=== PATIENT | female | born 1935 | race Caucasian/White ===

== ENCOUNTER → 2016-12-01 | Outpatient (CLI) | payer MEDICARE, OTHER ==
[2016-12-01 09:40] LABS: Basophils % (A) 1 %; CH 31.7; CHCM 32.5; Eosinophils # (A) 0.1 k/uL (0-0.7); Eosinophils % (A) 2 %; HCT 47.5 % (34.0-46.0); HDW 2.34; HGB 14.8 gm/dL (11.4-16.0); Luc % (Auto) 2; Lymphocytes # (A) 1.3 k/uL (1.0-4.8); Lymphocytes % (A) 21 %; MCH 30.6 pg (25.0-35.0); MCHC 31.2 g/dL (31.0-37.0); MCV 98.1 fL (80.0-100.0); Mean Platelet Volume 8.4; Monocytes # (A) 0.3 k/uL (0-1.0); Monocytes % (A) 5 %; Neutrophils # (A) 4.4 k/uL (1.3-7.7); Neutrophils % (A) 70 %; RBC 4.84 m/uL (3.80-5.40); RDW 12.9 % (11.5-15.5); WBC 6.3 k/uL (3.8-10.6); WBC (Perox) 6.16
[2016-12-01 10:14] LABS: ALT 27 U/L (9-52); AST 22 U/L (14-36); Alkaline Phosphatase 89 U/L (38-126); Anion Gap 15 mmol/L; Blood Urea Nitrogen 22 mg/dL (7-17); Carbon Dioxide 30 mmol/L (22-30); Chloride 105 mmol/L (98-107); Cholesterol 231 mg/dL (<200); Glucose 107 mg/dL (74-99); HDL Cholesterol 105 mg/dL (40-60); Non-African American GFR(MDRD) 57 (>60 ml/min/1.73 sqM); Potassium 4.7 mmol/L (3.5-5.1); Sodium 150 mmol/L (137-145); Total Bilirubin 0.5 mg/dL (0.2-1.3); Total Protein 7.9 g/dL (6.3-8.2); Triglycerides 98 mg/dL (<150)
[2016-12-01 10:46] LABS: Erythrocyte Sedimentation Rate 25 mm/hr (0-20)
== END | disposition home or self-care (01) ==
LOC: LABWHC1 09:14
PROVIDERS: ATTEND Internal Medicine
DX: E78.2 Mixed hyperlipidemia (principal); E55.9 Vitamin D deficiency, unspecified; R53.83 Other fatigue
CPT/HCPCS: 36415; 80053; 80061; 82306; 84443; 85025; 85652

== ENCOUNTER → 2017-06-02 | Outpatient (CLI) | payer MEDICARE, OTHER ==
[2017-06-02 11:23] LABS: CHCM 33.5; HCT 37.6 % (34.0-46.0); HDW 2.29; MCH 33.2 pg (25.0-35.0); MCHC 34.6 g/dL (31.0-37.0); MCV 95.9 fL (80.0-100.0); Mean Platelet Volume 7.5; RBC 3.93 m/uL (3.80-5.40); WBC 7.4 k/uL (3.8-10.6)
[2017-06-02 11:45] LABS: ALT 26 U/L (9-52); AST 21 U/L (14-36); Alkaline Phosphatase 82 U/L (38-126); Anion Gap 8 mmol/L; Blood Urea Nitrogen 25 mg/dL (7-17); Calcium 9.3 mg/dL (8.4-10.2); Carbon Dioxide 30 mmol/L (22-30); Chloride 106 mmol/L (98-107); Cholesterol 193 mg/dL (<200); Glucose 94 mg/dL (74-99); HDL Cholesterol 103 mg/dL (40-60); Non-African American GFR(MDRD) >60 (>60 ml/min/1.73 sqM); Potassium 4.6 mmol/L (3.5-5.1); Sodium 144 mmol/L (137-145); Total Bilirubin 0.5 mg/dL (0.2-1.3); Total Protein 6.9 g/dL (6.3-8.2); Triglycerides 67 mg/dL (<150)
[2017-06-02 12:10] LABS: Erythrocyte Sedimentation Rate 26 mm/hr (0-20)
== END | disposition home or self-care (01) ==
LOC: LABWHC1 10:39
PROVIDERS: ATTEND Internal Medicine
DX: R53.83 Other fatigue (principal)
CPT/HCPCS: 36415; 80053; 80061; 84443; 85027; 85652

== ENCOUNTER → 2017-09-15 | Outpatient (CLI) | payer MEDICARE, OTHER ==
[2017-09-15 12:26] LABS: CH 31.3; CHCM 31.7; HCT 42.6 % (34.0-46.0); HDW 2.26; HGB 13.4 gm/dL (11.4-16.0); MCH 31.1 pg (25.0-35.0); MCHC 31.5 g/dL (31.0-37.0); Mean Platelet Volume 7.5; RBC 4.31 m/uL (3.80-5.40); RDW 12.7 % (11.5-15.5); WBC 7.4 k/uL (3.8-10.6)
[2017-09-15 12:42] LABS: ALT 21 U/L (9-52); AST 22 U/L (14-36); Alkaline Phosphatase 90 U/L (38-126); Anion Gap 8 mmol/L; Blood Urea Nitrogen 22 mg/dL (7-17); Calcium 9.7 mg/dL (8.4-10.2); Carbon Dioxide 30 mmol/L (22-30); Chloride 104 mmol/L (98-107); Cholesterol 219 mg/dL (<200); Glucose 93 mg/dL (74-99); HDL Cholesterol 108 mg/dL (40-60); Non-African American GFR(MDRD) >60 (>60 ml/min/1.73 sqM); Potassium 4.7 mmol/L (3.5-5.1); Sodium 142 mmol/L (137-145); Total Bilirubin 0.4 mg/dL (0.2-1.3); Total Protein 7.3 g/dL (6.3-8.2)
[2017-09-15 14:05] LABS: Erythrocyte Sedimentation Rate 35 mm/hr (0-20)
== END | disposition home or self-care (01) ==
LOC: LABWHC1 11:18 → EEVIPCON 11:18
PROVIDERS: ATTEND Internal Medicine
DX: E78.2 Mixed hyperlipidemia (principal); E55.9 Vitamin D deficiency, unspecified; R51 Headache
CPT/HCPCS: 36415; 80053; 80061; 82306; 84443; 85027; 85652

== ENCOUNTER → 2018-09-23 | Outpatient (CLI) | payer MEDICARE, OTHER ==
[2018-09-23 10:29] LABS: HCT 40.4 % (34.0-46.0); HGB 13.1 gm/dL (11.4-16.0); MCH 32.1 pg (25.0-35.0); MCHC 32.6 g/dL (31.0-37.0); MCV 98.5 fL (80.0-100.0); Mean Platelet Volume 7.6; Platelet Count 179 k/uL (150-450); RDW 12.9 % (11.5-15.5); WBC 6.8 k/uL (3.8-10.6)
[2018-09-23 12:11] LABS: Erythrocyte Sedimentation Rate 33 mm/hr (0-20)
[2018-09-23 17:49] LABS: Albumin 4.2 g/dL (3.80-4.90); Albumin/Globulin Ratio 1.83 (1.20-2.10); Anion Gap 5.1 mmol/L (4.00-12.00); Calcium 9.3 mg/dL (8.7-10.3); Carbon Dioxide 30.9 mmol/L (21.6-31.8); Globulin 2.3 g/dL (2.1-3.7); LDL Cholesterol,Calculated 92.2 mg/dL (0.0-131.0); Potassium 4.9 mmol/L (3.5-5.5); Total Bilirubin 0.4 mg/dL (0.2-1.2); Total Protein 6.5 g/dL (6.2-8.2); Uric Acid 3.2 mg/dL (2.9-7.7); VLDL Calculation 15.8 mg/dL (5.00-40.00)
== END | disposition home or self-care (01) ==
LOC: LABWHC1 09:02
PROVIDERS: ATTEND Internal Medicine
DX: E03.9 Hypothyroidism, unspecified (principal); I10 Essential (primary) hypertension
CPT/HCPCS: 36415; 80053; 80061; 84443; 84550; 85027; 85652

== ENCOUNTER 2019-10-22 12:13 | Inpatient (IN) | payer MEDICARE, OTHER ==
[2019-10-22] MEDS ORDERED: NAPROXEN 250 MG TAB PO PRN (15:13)
[2019-10-22] MEDS ORDERED: ACETAMINOPHEN TAB 325 MG TAB PO PRN (15:22)
[2019-10-22] MEDS ORDERED: ONDANSETRON 4 MG/2 ML VIAL IVP PRN (15:22)
--- NOTE | 2019-10-22 15:37 | P.HPIM ---
History of Present Illness H&P Date: 10/22/19 Chief Complaint: Diarrhea This 84-year-old female patient was admitted as a direct admit from her PCP with concerns of possible C. diff infection. Per patient and family diarrhea has been occurring for over 3 weeks seems to occur after eating. Denies any blood in stool. Denies any nausea or vomiting. Denies any abdominal cramping. Per patient and family no recent antibiotic use. Patient's past medical history hyperlipidemia, osteoarthritis, mentally challenged and anxiety depression. At this time stool for C. diff and stool cultures ordered. Will consult infectious disease. Will start patient on vancomycin oral solution for possible C. diff infection. Normal saline at 75. Patient denies any chest pain or shortness of breath. Patient denies nausea vomiting or diarrhea. Patient denies any urinary burning or frequency. Review of Systems please refer to HPI otherwise unremarkable Past Medical History Past Medical History: Hyperlipidemia, Osteoarthritis (OA) Additional Past Medical History / Comment(s): Mentally challenged, arthritis mostly in bilateral legs, tremors of arms/hands. History of Any Multi-Drug Resistant Organisms: None Reported Past Surgical History: Hysterectomy Additional Past Surgical History / Comment(s): Colonoscopy Past Anesthesia/Blood Transfusion Reactions: No Reported Reaction Smoking Status: Never smoker - Past Family History Father Family Medical History: No Reported History Additional Family Medical History / Comment(s): Father was healthy Mother Family Medical History: No Reported History Additional Family Medical History / Comment(s): Mother was healthy Medications and Allergies Home Medications Medication Instructions Recorded Confirmed Type Diphenox-Atrop 2.5-0.025 mg 1 tab PO Q6H PRN 10/22/19 10/22/19 History [Lomotil] LORazepam [Ativan] 0.5 mg PO Q8H 10/22/19 10/22/19 History Naproxen 375 mg PO BID PRN 10/22/19 10/22/19 History PARoxetine HCL [Paxil] 40 mg PO DAILY 10/22/19 10/22/19 History Propranolol [Inderal] 20 mg PO DIRECTED 10/22/19 10/22/19 History Simvastatin [Zocor] 20 mg PO HS 10/22/19 10/22/19 History Allergies Allergy/AdvReac Type Severity Reaction Status Date / Time donepezil [From Aricept] AdvReac Vomiting Verified 10/22/19 14:14 Physical Exam Vitals: Vital Signs Temp Pulse Resp BP Pulse Ox 10/22/19 13:08 97.6 F 83 16 136/79 94 L Intake and Output 10/22/19 10/22/19 10/22/19 06:59 14:59 22:59 Other: Weight 49.9 kg Head normocephalic Neck supple Lungs clear to auscultation bilaterally no wheezing or crackles Heart regular rate and rhythm S1-S2, no rub or gallop Abdomen is soft nontender nondistended positive bowel sounds no hepatosplenomegaly Extremities no edema Neuro alert and orientated to 3 mentally challenged. Thrombosis Risk Factor Assmnt - Choose All That Apply Any of the Below Risk Factors Present?: Yes Other Risk Factors: Yes Each Risk Factor Represents 3 Points: Age 75 years or older Other congenital or acquired thrombophilia - If yes, enter type in comment: No Thrombosis Risk Factor Assessment Total Risk Factor Score: 3 Thrombosis Risk Factor Assessment Level: Moderate Risk Assessment and Plan Assessment: 1. Gastroenteritis with diarrhea. At this time stool for culture and C. diff ordered. Docusate consulted. Patient started on oral vancomycin possible C. diff infection 2. History of hyperlipidemia. Patient maintained on statin 3. History of osteoarthritis to bilateral legs 4. Mentally challenged. Patient resides at [facility] facility has legal guardian 5. History of anxiety and depression. home meds resumed DVT prophylaxis heparin. GI prophylaxis Protonix
[2019-10-22 16:08] LABS: Basophils % (A) 0 %; Eosinophils % (A) 1 %; HCT 40.2 % (34.0-46.0); HGB 13.3 gm/dL (11.4-16.0); Lymphocytes # (A) 1.5 k/uL (1.0-4.8); Lymphocytes % (A) 31 %; MCH 32.5 pg (25.0-35.0); MCHC 33.1 g/dL (31.0-37.0); MCV 98.2 fL (80.0-100.0); Mean Platelet Volume 6.9; Monocytes # (A) 0.4 k/uL (0-1.0); Monocytes % (A) 7 %; Neutrophils # (A) 2.8 k/uL (1.3-7.7); Neutrophils % (A) 58 %; Platelet Count 221 k/uL (150-450); RDW 12.7 % (11.5-15.5); WBC 4.8 k/uL (3.8-10.6)
[2019-10-22 16:12] LABS: Albumin 3.5 g/dL (3.5-5.0); Calcium 9.2 mg/dL (8.4-10.2); Potassium 3.3 mmol/L (3.5-5.1); Total Bilirubin 0.5 mg/dL (0.2-1.3); Total Protein 6.4 g/dL (6.3-8.2)
[2019-10-22] MEDS: LORazepam 0.5 MG TAB PO SCH ×2 (17:15→23:46)
[2019-10-22] MEDS ORDERED: CHERRY FLAVOR 60 ML BOTTLE PO SCH (18:00)
[2019-10-22] MEDS ORDERED: VANCOMYCIN ORAL SOLUTION 250 MG/5 ML BOTTLE PO SCH (18:00)
[2019-10-22] MEDS: BACITRACIN 500 UNIT/GM OINT 28.4 GM TUBE TOPICAL SCH (20:24)
[2019-10-22] MEDS: HEPARIN SODIUM,PORCINE 5,000 UNIT/ML 1 ML VIAL SQ SCH (20:25)
[2019-10-22] MEDS: ATORVASTATIN 10 MG TAB PO SCH (20:25)
[2019-10-22] MEDS: SODIUM CHLORIDE 0.9% 1,000 ML IV SCH ×2 (20:25→23:49)
[2019-10-22] MEDS ORDERED: PROPRANOLOL 20 MG TAB PO SCH (21:00)
--- NOTE | 2019-10-23 05:20 | P.CONS ---
History of Present Illness - Reason for Consult Consult date: 10/22/19 Diarrhea and possible C. diff Requesting physician: Lyndsay Moody - Chief Complaint Diarrhea 3 weeks - History of Present Illness Patient is 84-year-old female who has been admitted directly to the hospital from her primary care physician office for management of diarrhea that apparently has been going on for almost 3 weeks now and concern for possible C. diff colitis history. Mostly from the family mentioning no recent antibiotic exposure, the patient did have a diarrhea 2-3 times per day and is mostly whenever the patient eats any food she will have a bowel movement there is no blood or mucus in stools and the patient denies any crampy abdominal pain no nausea no vomiting no fever patient has been admitted to the hospitalist her for C. diff is requested currently not collected as patient did not have any bowel movement since admission to the hospital she was empirically started on oral vancomycin and infectious disease was consulted for further recommendation regarding antibiotic therapy Review of Systems Positive point has been mentioned in the HPI rest of the systems are negative Past Medical History Past Medical History: Hyperlipidemia, Osteoarthritis (OA) Additional Past Medical History / Comment(s): Mentally challenged, arthritis mostly in bilateral legs, tremors of arms/hands. History of Any Multi-Drug Resistant Organisms: None Reported Past Surgical History: Hysterectomy Additional Past Surgical History / Comment(s): Colonoscopy Past Anesthesia/Blood Transfusion Reactions: No Reported Reaction Smoking Status: Never smoker - Past Family History Father Family Medical History: No Reported History Additional Family Medical History / Comment(s): Father was healthy Mother Family Medical History: No Reported History Additional Family Medical History / Comment(s): Mother was healthy Medications and Allergies Home Medications Medication Instructions Recorded Confirmed Type Diphenox-Atrop 2.5-0.025 mg 1 tab PO Q6H PRN 10/22/19 10/22/19 History [Lomotil] LORazepam [Ativan] 0.5 mg PO Q8H 10/22/19 10/22/19 History Naproxen 375 mg PO BID PRN 10/22/19 10/22/19 History PARoxetine HCL [Paxil] 40 mg PO DAILY 10/22/19 10/22/19 History Propranolol [Inderal] 20 mg PO DIRECTED 10/22/19 10/22/19 History Simvastatin [Zocor] 20 mg PO HS 10/22/19 10/22/19 History Allergies Allergy/AdvReac Type Severity Reaction Status Date / Time donepezil [From Aricept] AdvReac Vomiting Verified 10/22/19 14:14 Physical Exam Vitals: Vital Signs Temp Pulse Resp BP Pulse Ox 10/22/19 13:08 97.6 F 83 16 136/79 94 L Intake and Output 10/22/19 10/22/19 10/22/19 06:59 14:59 22:59 Other: Weight 49.9 kg GENERAL DESCRIPTION: An elderly female lying in bed, no distress. No tachypnea or accessory muscle of respiration use. HEENT: Shows Pallor , no scleral icterus. Oral mucous membrane is dry. No pharyngeal erythema or thrush NECK: Trachea central, no thyromegaly. LUNGS: Unlabored breathing. Clear to auscultation anteriorly. No wheeze or crackle. HEART: S1, S2, regular rate and rhythm. No loud murmur ABDOMEN: Soft, no tenderness , guarding or rigidity, no organomegaly EXTREMITIES: No edema of feet. SKIN: No rash, no masses palpable. NEUROLOGICAL: The patient is awake, alert, oriented x3, mood and affect normal. Results CBC & Chem 7: 10/22/19 15:33 10/22/19 15:33 Assessment and Plan Assessment: 1-patient presented to hospital with diarrhea that has been going on for the last 3 weeks and this patient currently with no recent antibiotic exposure patient with no fever or elevated white count making it to be less likely C. diff colitis in view of absence of any inflammatory changes though not entirely excluded (1) Diarrhea Current Visit: Yes Status: Acute Code(s): R19.7 - DIARRHEA, UNSPECIFIED SNOMED Code(s): 62204877 Plan: 1-we will check a stool for C. diff and stool cultures 2-empiric vancomycin 250 by mouth every 6 hours 3-we'll add Questran 4 g daily for symptomatic relief 4-patient has been encouraged yougart Intake We will follow on clinical condition and cultures to further adjust medication if needed Thank you for this consultation will follow this patient with you
[2019-10-23] MEDS: HEPARIN SODIUM,PORCINE 5,000 UNIT/ML 1 ML VIAL SQ SCH ×2 (08:43→20:08)
[2019-10-23] MEDS: PARoxetine 20 MG TAB PO SCH (08:43)
[2019-10-23] MEDS: LORazepam 0.5 MG TAB PO SCH ×3 (08:43→23:42)
[2019-10-23] MEDS: CHOLESTYRAMINE (WITH SUGAR) 4 GM PACKET PO SCH ×2 (08:43→17:31)
[2019-10-23] MEDS: BACITRACIN 500 UNIT/GM OINT 28.4 GM TUBE TOPICAL SCH ×2 (08:43→20:08)
[2019-10-23] MEDS ORDERED: PANTOPRAZOLE 40 MG/10 ML VIAL IVP SCH (09:00)
[2019-10-23 11:47] LABS: Basophils % (A) 0 %; Eosinophils # (A) 0.1 k/uL (0-0.7); Eosinophils % (A) 1 %; HCT 33.5 % (34.0-46.0); HGB 10.9 gm/dL (11.4-16.0); Lymphocytes # (A) 1.3 k/uL (1.0-4.8); Lymphocytes % (A) 19 %; MCH 31.8 pg (25.0-35.0); MCHC 32.5 g/dL (31.0-37.0); MCV 97.9 fL (80.0-100.0); Mean Platelet Volume 6.8; Monocytes # (A) 0.3 k/uL (0-1.0); Monocytes % (A) 5 %; Neutrophils # (A) 4.7 k/uL (1.3-7.7); Neutrophils % (A) 72 %; Platelet Count 236 k/uL (150-450); RBC 3.42 m/uL (3.80-5.40); RDW 12.8 % (11.5-15.5); WBC 6.5 k/uL (3.8-10.6)
[2019-10-23 12:13] LABS: Albumin 2.8 g/dL (3.5-5.0); Calcium 8.4 mg/dL (8.4-10.2); Potassium 3.4 mmol/L (3.5-5.1); Total Bilirubin 0.4 mg/dL (0.2-1.3); Total Protein 5.5 g/dL (6.3-8.2)
--- NOTE | 2019-10-23 13:27 | P.PN ---
Subjective Progress Note Date: 10/23/19 This 84-year-old female patient was admitted as a direct admit from her PCP with concerns of possible C. diff infection. Per patient and family diarrhea has been occurring for over 3 weeks seems to occur after eating. Denies any blood in stool. Denies any nausea or vomiting. Denies any abdominal cramping. Per patient and family no recent antibiotic use. Patient's past medical history hyperlipidemia, osteoarthritis, mentally challenged and anxiety depression. At this time stool for C. diff and stool cultures ordered. Will consult infectious disease. Will start patient on vancomycin oral solution for possible C. diff infection. Normal saline at 75. Patient denies any chest pain or shortness of breath. Patient denies nausea vomiting or diarrhea. Patient denies any urinary burning or frequency. On 10/23/2019 agent was seen and examined on the medical floor she is alert and nonverbal in no apparent distress, family member at the bedside stated that patient had 3 more episodes of diarrhea this morning with liquid stools, C. diff testing was negative oral vancomycin was discontinued. Otherwise there is no complaints there is no fever or chills no headache or dizziness no chest pain no shortness of breath no cough no nausea or vomiting no abdominal pain and no urinary symptoms per caregiver. Objective - Vital Signs Vital signs: Vital Signs Temp 97.8 F 10/22/19 23:00 Pulse 96 10/22/19 23:00 Resp 16 10/22/19 13:08 BP 126/72 10/22/19 23:00 Pulse Ox 94 L 10/22/19 23:00 Intake & Output 10/22/19 10/23/19 10/23/19 18:59 06:59 18:59 Intake Total 1020 Balance 1020 Weight 49.9 kg Intake: Intake, IV Titration 900 Amount Sodium Chloride 0.9% 1, 900 000 ml @ 75 mls/hr IV . [id number] [facility] Rx#:[id number] Oral 120 Other: Voiding Method Toilet # Voids 4 - Exam In general patient is alert nonverbal in no apparent distress Head normocephalic and atraumatic Neck supple no JVD no goiter Lungs clear to auscultation bilaterally no wheezing or crackles Heart regular rate and rhythm S1-S2, no rub or gallop Abdomen is soft nontender nondistended positive bowel sounds no hepatosplen omegaly Extremities no edema there is an ulcer on the internal aspect of the right fifth toe Neuro alert, nonverbal mentally challenged. No acute focal neurological deficit - Labs CBC & Chem 7: 10/23/19 11:34 10/23/19 11:34 Labs: Abnormal Lab Results - Last 24 Hours (Table) 10/22/19 10/23/19 10/23/19 Range/Units 15:33 11:34 11:34 RBC 3.42 L (3.80-5.40) m/uL Hgb 10.9 L (11.4-16.0) gm/dL Hct 33.5 L (34.0-46.0) % Potassium 3.3 L 3.4 L (3.5-5.1) mmol/L Chloride 111 H (98-107) mmol/L BUN 26 H (7-17) mg/dL Glucose 120 H (74-99) mg/dL Total Protein 5.5 L (6.3-8.2) g/dL Albumin 2.8 L (3.5-5.0) g/dL Microbiology - Last 24 Hours (Table) 10/22/19 19:00 Stool Culture - Preliminary Stool Assessment and Plan Plan: 1. Gastroenteritis with diarrhea. At this time stool for culture and C. diff ordered. Docusate consulted. Patient started on oral vancomycin possible C. diff infection. C. diff testing was negative at this time we are awaiting culture results. Infectious disease consultation requested 2. History of hyperlipidemia. Patient maintained on statin 3. History of osteoarthritis to bilateral legs 4. Mentally challenged. Patient resides at [facility] facility has legal guardian 5. History of anxiety and depression. home meds resumed 6. ulcer on right fifth toe treating with local care DVT prophylaxis heparin. GI prophylaxis Protonix
[2019-10-23] MEDS: SODIUM CHLORIDE 0.9% 1,000 ML IV SCH ×2 (17:30→20:08)
[2019-10-23] MEDS: ATORVASTATIN 10 MG TAB PO SCH (20:08)
[2019-10-24] MEDS: LORazepam 0.5 MG TAB PO SCH ×3 (07:37→20:31)
[2019-10-24] MEDS: PANTOPRAZOLE 40 MG TABLET PO SCH (07:37)
[2019-10-24] MEDS: SODIUM CHLORIDE 0.9% 1,000 ML IV SCH ×2 (07:37→17:30)
[2019-10-24 08:23] LABS: Basophils % (A) 0 %; Eosinophils # (A) 0.1 k/uL (0-0.7); Eosinophils % (A) 1 %; HCT 30.8 % (34.0-46.0); HGB 10.5 gm/dL (11.4-16.0); Lymphocytes # (A) 2.1 k/uL (1.0-4.8); Lymphocytes % (A) 32 %; MCH 32.4 pg (25.0-35.0); MCHC 34.1 g/dL (31.0-37.0); MCV 94.9 fL (80.0-100.0); Mean Platelet Volume 6.2; Monocytes # (A) 0.4 k/uL (0-1.0); Monocytes % (A) 6 %; Neutrophils # (A) 3.8 k/uL (1.3-7.7); Neutrophils % (A) 58 %; Platelet Count 237 k/uL (150-450); RBC 3.25 m/uL (3.80-5.40); RDW 13.1 % (11.5-15.5); WBC 6.5 k/uL (3.8-10.6)
[2019-10-24 08:31] LABS: Albumin 2.8 g/dL (3.5-5.0); Calcium 8.4 mg/dL (8.4-10.2); Potassium 3.2 mmol/L (3.5-5.1); Total Bilirubin 0.3 mg/dL (0.2-1.3); Total Protein 5.5 g/dL (6.3-8.2)
[2019-10-24] MEDS: PARoxetine 20 MG TAB PO SCH (08:54)
[2019-10-24] MEDS: HEPARIN SODIUM,PORCINE 5,000 UNIT/ML 1 ML VIAL SQ SCH ×2 (08:55→19:47)
[2019-10-24] MEDS: CHOLESTYRAMINE (WITH SUGAR) 4 GM PACKET PO SCH ×2 (08:55→17:28)
[2019-10-24] MEDS: BACITRACIN 500 UNIT/GM OINT 28.4 GM TUBE TOPICAL SCH ×2 (08:57→20:29)
[2019-10-24] MEDS ORDERED: Potassium Replacement Protocol 1 EACH MISC MISCELLANE PRN (09:23)
[2019-10-24] MEDS: POTASSIUM CHLORIDE ER 20 MEQ TAB.ER PO SCH ×2 (10:03→11:08)
--- NOTE | 2019-10-24 10:50 | P.PN ---
Subjective Progress Note Date: 10/24/19 This 84-year-old female patient was admitted as a direct admit from her PCP with concerns of possible C. diff infection. Per patient and family diarrhea has been occurring for over 3 weeks seems to occur after eating. Denies any blood in stool. Denies any nausea or vomiting. Denies any abdominal cramping. Per patient and family no recent antibiotic use. Patient's past medical history hyperlipidemia, osteoarthritis, mentally challenged and anxiety depression. At this time stool for C. diff and stool cultures ordered. Will consult infectious disease. Will start patient on vancomycin oral solution for possible C. diff infection. Normal saline at 75. Patient denies any chest pain or shortness of breath. Patient denies nausea vomiting or diarrhea. Patient denies any urinary burning or frequency. On 10/23/2019 agent was seen and examined on the medical floor she is alert and nonverbal in no apparent distress, family member at the bedside stated that patient had 3 more episodes of diarrhea this morning with liquid stools, C. diff testing was negative oral vancomycin was discontinued. Otherwise there is no complaints there is no fever or chills no headache or dizziness no chest pain no shortness of breath no cough no nausea or vomiting no abdominal pain and no urinary symptoms per caregiver. On 10/24/2019 patient is currently resting comfortably in bed. Per nursing staff patient was becoming more formed. Questran was started per infectious disease. At that time patient denies chest pain or shortness of breath. Patient denies nausea vomiting or diarrhea. Patient denies any urinary burning or frequency. Potassium low at 3.2 replace per protocol Objective - Vital Signs Vital signs: Vital Signs Temp 97.2 F L 10/24/19 07:42 Pulse 91 10/24/19 07:42 Resp 16 10/24/19 07:42 BP 128/66 10/24/19 07:42 Pulse Ox 95 10/24/19 07:42 Intake & Output 10/23/19 10/24/19 10/24/19 18:59 06:59 18:59 Other: Voiding Method Toilet Toilet # Voids 2 1 - Exam In general patient is alert nonverbal in no apparent distress Head normocephalic and atraumatic Neck supple no JVD no goiter Lungs clear to auscultation bilaterally no wheezing or crackles Heart regular rate and rhythm S1-S2, no rub or gallop Abdomen is soft nontender nondistended positive bowel sounds no hepatosplenomegaly Extremities no edema there is an ulcer on the internal aspect of the right fifth toe Neuro alert, nonverbal mentally challenged. No acute focal neurological deficit - Labs CBC & Chem 7: 10/24/19 07:42 10/24/19 07:42 Labs: Abnormal Lab Results - Last 24 Hours (Table) 10/23/19 10/23/19 10/24/19 Range/Units 11:34 11:34 07:42 RBC 3.42 L 3.25 L (3.80-5.40) m/uL Hgb 10.9 L 10.5 L (11.4-16.0) gm/dL Hct 33.5 L 30.8 L (34.0-46.0) % Potassium 3.4 L (3.5-5.1) mmol/L Chloride 111 H (98-107) mmol/L Total Protein 5.5 L (6.3-8.2) g/dL Albumin 2.8 L (3.5-5.0) g/dL 10/24/19 Range/Units 07:42 RBC (3.80-5.40) m/uL Hgb (11.4-16.0) gm/dL Hct (34.0-46.0) % Potassium 3.2 L (3.5-5.1) mmol/L Chloride 111 H (98-107) mmol/L Total Protein 5.5 L (6.3-8.2) g/dL Albumin 2.8 L (3.5-5.0) g/dL Assessment and Plan Assessment: 1. Gastroenteritis with diarrhea. At this time stool for culture and C. diff ordered. Patient started on oral vancomycin possible C. diff infection. C. diff testing was negative at this time we are awaiting culture results. Per infectious disease Questran has been added. Awaiting stool cultures. Vancomycin has been DC'd per infectious disease 2. History of hyperlipidemia. Patient maintained on statin 3. History of osteoarthritis to bilateral legs 4. Mentally challenged. Patient resides at [facility] facility has legal guardian 5. History of anxiety and depression. home meds resumed 6. ulcer on right fifth toe treating with local care 7. Hypokalemia. Potassium 3.2 replace per protocol DVT prophylaxis heparin. GI prophylaxis Protonix I performed an examination of the patient and discussed their management with the Nurse Practitioner. I have reviewed the Nurse Practitioner's notes and agree with the documented findings and plan of care
[2019-10-24] MEDS: ATORVASTATIN 10 MG TAB PO SCH (19:46)
[2019-10-24] MEDS: MELATONIN 5 MG TABLET PO SCH (22:09)
[2019-10-24] MEDS: traZODone HCL 50 MG TAB PO SCH (22:10)
[2019-10-25 07:08] LABS: Basophils % (A) 0 %; Eosinophils # (A) 0.1 k/uL (0-0.7); Eosinophils % (A) 1 %; HCT 30.3 % (34.0-46.0); HGB 9.9 gm/dL (11.4-16.0); Lymphocytes # (A) 1.5 k/uL (1.0-4.8); Lymphocytes % (A) 26 %; MCH 31.6 pg (25.0-35.0); MCHC 32.7 g/dL (31.0-37.0); MCV 96.9 fL (80.0-100.0); Mean Platelet Volume 6.7; Monocytes # (A) 0.4 k/uL (0-1.0); Monocytes % (A) 7 %; Neutrophils # (A) 3.7 k/uL (1.3-7.7); Neutrophils % (A) 63 %; Platelet Count 211 k/uL (150-450); RBC 3.13 m/uL (3.80-5.40); WBC 5.9 k/uL (3.8-10.6)
[2019-10-25 07:24] LABS: Albumin 2.5 g/dL (3.5-5.0); Calcium 8.6 mg/dL (8.4-10.2); Potassium 3.7 mmol/L (3.5-5.1); Total Bilirubin 0.3 mg/dL (0.2-1.3)
[2019-10-25] MEDS: PARoxetine 20 MG TAB PO SCH (09:03)
[2019-10-25] MEDS: HEPARIN SODIUM,PORCINE 5,000 UNIT/ML 1 ML VIAL SQ SCH ×2 (09:03→20:28)
[2019-10-25] MEDS: PANTOPRAZOLE 40 MG TABLET PO SCH (09:03)
[2019-10-25] MEDS: LORazepam 0.5 MG TAB PO SCH ×3 (09:03→22:45)
[2019-10-25] MEDS: BACITRACIN 500 UNIT/GM OINT 28.4 GM TUBE TOPICAL SCH ×2 (09:03→20:28)
[2019-10-25] MEDS: CHOLESTYRAMINE (WITH SUGAR) 4 GM PACKET PO SCH ×2 (09:04→17:24)
--- NOTE | 2019-10-25 09:38 | P.PN ---
Subjective Progress Note Date: 10/25/19 Principal diagnosis: Gastroenteritis, dyslipidemia, osteoarthritis, developmentally delayed mentally challenged, generalized anxiety disorder and depression, ulceration of fifth to e, electrolyte imbalance with hypokalemia 10/25/2019, patient seen eval examined during the rounds labs reviewed medications reviewed care plan discussed with the patient and water purifier at length diarrhea is still going on but severity has improved, patient feels better today eating her breakfast, labs reviewed medications reviewed, potassium improved to 3.7, stool for C. difficile is negative Objective - Vital Signs Vital signs: Vital Signs Temp 97.5 F L 10/25/19 07:00 Pulse 88 10/25/19 07:00 Resp 15 10/25/19 07:00 BP 134/79 10/25/19 07:00 Pulse Ox 95 10/25/19 07:00 Intake & Output 10/24/19 10/25/19 10/25/19 18:59 06:59 18:59 Intake Total 930 Balance 930 Intake: Intake, IV Titration 450 Amount Sodium Chloride 0.9% 1, 450 000 ml @ 75 mls/hr IV . [id number] [facility] Rx#:[id number] Oral 480 Other: Voiding Method Toilet Toilet # Voids 5 - Exam In general patient is alert nonverbal in no apparent distress Head normocephalic and atraumatic Neck supple no JVD no goiter Lungs clear to auscultation bilaterally no wheezing or crackles Heart regular rate and rhythm S1-S2, no rub or gallop Abdomen is soft nontender nondistended positive bowel sounds no hepatosplenomegaly Extremities no edema there is an ulcer on the internal aspect of the right fifth toe Neuro alert, nonverbal mentally challenged. No acute focal neurological deficit - Labs CBC & Chem 7: 10/25/19 06:38 10/25/19 06:38 Labs: Abnormal Lab Results - Last 24 Hours (Table) 10/25/19 10/25/19 Range/Units 06:38 06:38 RBC 3.13 L (3.80-5.40) m/uL Hgb 9.9 L (11.4-16.0) gm/dL Hct 30.3 L (34.0-46.0) % Chloride 114 H (98-107) mmol/L Glucose 100 H (74-99) mg/dL Total Protein 5.0 L (6.3-8.2) g/dL Albumin 2.5 L (3.5-5.0) g/dL Microbiology - Last 24 Hours (Table) 10/22/19 19:00 Stool Culture - Preliminary Stool Assessment and Plan Assessment: Gastroenteritis Hypokalemia Intractable diarrhea Dyslipidemia Developmentally delayed/mentally challenged Plan: Continue supportive care monitor labs closely increase activity as tolerated patient stool for C. difficile is negative however diarrhea still going on severity and frequency have improved will continue gentle rehydration Time with Patient: Greater than 30
[2019-10-25] MEDS: MELATONIN 5 MG TABLET PO SCH (20:27)
[2019-10-25] MEDS: ATORVASTATIN 10 MG TAB PO SCH (20:27)
[2019-10-25] MEDS: traZODone HCL 50 MG TAB PO SCH (20:27)
[2019-10-25] MEDS: SODIUM CHLORIDE 0.9% 1,000 ML IV SCH (22:45)
[2019-10-26 07:48] LABS: Basophils % (A) 0 %; Eosinophils # (A) 0.1 k/uL (0-0.7); Eosinophils % (A) 2 %; HCT 32.9 % (34.0-46.0); HGB 10.7 gm/dL (11.4-16.0); Lymphocytes # (A) 1.7 k/uL (1.0-4.8); Lymphocytes % (A) 28 %; MCH 31.9 pg (25.0-35.0); MCHC 32.5 g/dL (31.0-37.0); Mean Platelet Volume 6.9; Monocytes # (A) 0.3 k/uL (0-1.0); Monocytes % (A) 5 %; Neutrophils # (A) 3.9 k/uL (1.3-7.7); Neutrophils % (A) 62 %; Platelet Count 220 k/uL (150-450); RBC 3.35 m/uL (3.80-5.40); WBC 6.3 k/uL (3.8-10.6)
[2019-10-26 07:56] LABS: Albumin 2.7 g/dL (3.5-5.0); Calcium 8.8 mg/dL (8.4-10.2); Potassium 4.1 mmol/L (3.5-5.1); Total Bilirubin 0.5 mg/dL (0.2-1.3); Total Protein 5.3 g/dL (6.3-8.2)
[2019-10-26] MEDS: CHOLESTYRAMINE (WITH SUGAR) 4 GM PACKET PO SCH ×2 (09:17→17:32)
[2019-10-26] MEDS: PANTOPRAZOLE 40 MG TABLET PO SCH (09:18)
[2019-10-26] MEDS: PARoxetine 20 MG TAB PO SCH (09:18)
[2019-10-26] MEDS: LORazepam 0.5 MG TAB PO SCH ×3 (09:18→20:47)
[2019-10-26] MEDS: HEPARIN SODIUM,PORCINE 5,000 UNIT/ML 1 ML VIAL SQ SCH ×2 (09:18→20:16)
[2019-10-26] MEDS: BACITRACIN 500 UNIT/GM OINT 28.4 GM TUBE TOPICAL SCH ×2 (09:18→20:17)
--- NOTE | 2019-10-26 09:48 | P.PN ---
Subjective Progress Note Date: 10/26/19 Principal diagnosis: Gastroenteritis, dyslipidemia, osteoarthritis, developmentally delayed mentally challenged, generalized anxiety disorder and depression, ulceration of fifth to e, electrolyte imbalance with hypokalemia 10/26/2019, patient seen eval reexamined overall continued to improve diarrhea frequency have improved now able to sleep very well denies any abdominal pain, labs reviewed, care plan discussed with the flooring grader at length 10/25/2019, patient seen eval examined during the rounds labs reviewed medications reviewed care plan discussed with the patient and flooring grader at length diarrhea is still going on but severity has improved, patient feels better today eating her breakfast, labs reviewed medications reviewed, potassium improved to 3.7, stool for C. difficile is negative Objective - Vital Signs Vital signs: Vital Signs Temp 97.8 F 10/26/19 07:00 Pulse 81 10/26/19 07:00 Resp 16 10/26/19 07:00 BP 119/58 10/26/19 07:00 Pulse Ox 94 L 10/26/19 09:33 Intake & Output 10/25/19 10/26/19 10/26/19 18:59 06:59 18:59 Intake Total 600 630 Balance 600 630 Intake: IV 600 Sodium Chloride 0.9% 1, 600 000 ml @ 75 mls/hr IV . [id number] [facility] Rx#:[id number] Intake, IV Titration 150 Amount Sodium Chloride 0.9% 1, 150 000 ml @ 75 mls/hr IV . [id number] [facility] Rx#:[id number] Oral 480 Other: Voiding Method Toilet Toilet # Voids 1 - Exam In general patient is alert nonverbal in no apparent distress Head normocephalic and atraumatic Neck supple no JVD no goiter Lungs clear to auscultation bilaterally no wheezing or crackles Heart regular rate and rhythm S1-S2, no rub or gallop Abdomen is soft nontender nondistended positive bowel sounds no hep atosplenomegaly Extremities no edema there is an ulcer on the internal aspect of the right fifth toe Neuro alert, nonverbal mentally challenged. No acute focal neurological deficit - Labs CBC & Chem 7: 10/26/19 06:55 10/26/19 06:55 Labs: Abnormal Lab Results - Last 24 Hours (Table) 10/26/19 10/26/19 Range/Units 06:55 06:55 RBC 3.35 L (3.80-5.40) m/uL Hgb 10.7 L (11.4-16.0) gm/dL Hct 32.9 L (34.0-46.0) % Chloride 113 H (98-107) mmol/L AST 41 H (14-36) U/L Total Protein 5.3 L (6.3-8.2) g/dL Albumin 2.7 L (3.5-5.0) g/dL Microbiology - Last 24 Hours (Table) 10/22/19 19:00 Stool Culture - Final Stool Assessment and Plan Assessment: Gastroenteritis Hypokalemia Intractable diarrhea Dyslipidemia Developmentally delayed/mentally challenged Plan: Continue supportive care monitor labs closely increase activity as tolerated patient stool for C. difficile is negative however diarrhea however is improving in severity and frequency have improved will continue gentle rehydration, if remains stable possible discharge in next 24-48 hours Time with Patient: Greater than 30
[2019-10-26 16:11] VITALS: RESP 17
[2019-10-26] MEDS: SODIUM CHLORIDE 0.9% 1,000 ML IV SCH ×2 (17:06→20:47)
[2019-10-26] MEDS: traZODone HCL 50 MG TAB PO SCH (20:16)
[2019-10-26] MEDS: ATORVASTATIN 10 MG TAB PO SCH (20:16)
[2019-10-26] MEDS: MELATONIN 5 MG TABLET PO SCH (20:16)
--- NOTE | 2019-10-27 02:06 | PN ---
PROGRESS NOTE DATE OF SERVICE: 10/26/2019. REASON FOR FOLLOW UP: Diarrhea. INTERVAL HISTORY: The patient is currently afebrile. The patient's diarrhea has resolved. The patient denies having any chest pain, shortness of breath or cough. No nausea, vomiting, abdominal pain. PHYSICAL EXAMINATION: Blood pressure is 99/81 with a pulse of 77, temperature 98.1. She is 93% on room air. General description is an elderly female lying in bed in no distress. Respiratory system: Unlabored breathing, clear to auscultation anteriorly. Heart S1, S2. Regular rate and rhythm. Abdomen soft, no tenderness. LABS: Stool culture negative. Stool for C difficile is negative. DIAGNOSTIC IMPRESSION AND PLAN: Patient with diarrhea in this patient so far infection workup has been negative. She has responded to the with Questran maybe continued for a short course and continue supportive care. MMODL / IJN: [id number] /
[2019-10-27] MEDS: LORazepam 0.5 MG TAB PO SCH (07:34)
[2019-10-27] MEDS: PANTOPRAZOLE 40 MG TABLET PO SCH (07:34)
[2019-10-27] MEDS: HEPARIN SODIUM,PORCINE 5,000 UNIT/ML 1 ML VIAL SQ SCH (08:26)
[2019-10-27] MEDS: CHOLESTYRAMINE (WITH SUGAR) 4 GM PACKET PO SCH (08:26)
[2019-10-27] MEDS: PARoxetine 20 MG TAB PO SCH (08:26)
[2019-10-27] MEDS: BACITRACIN 500 UNIT/GM OINT 28.4 GM TUBE TOPICAL SCH (08:28)
[2019-10-27 08:36] VITALS: BP 127/82; PULSE 89; TEMP 97.5
[2019-10-27 09:50] LABS: Basophils % (A) 0 %; Eosinophils # (A) 0.1 k/uL (0-0.7); Eosinophils % (A) 2 %; HCT 31.3 % (34.0-46.0); HGB 10.6 gm/dL (11.4-16.0); Lymphocytes # (A) 1.7 k/uL (1.0-4.8); Lymphocytes % (A) 20 %; MCH 32.4 pg (25.0-35.0); MCV 95.4 fL (80.0-100.0); Mean Platelet Volume 6.8; Monocytes # (A) 0.4 k/uL (0-1.0); Monocytes % (A) 4 %; Neutrophils # (A) 5.9 k/uL (1.3-7.7); Neutrophils % (A) 72 %; Platelet Count 214 k/uL (150-450); RBC 3.28 m/uL (3.80-5.40); RDW 13.1 % (11.5-15.5); WBC 8.2 k/uL (3.8-10.6)
[2019-10-27 11:06] LABS: Albumin 2.8 g/dL (3.5-5.0); Calcium 9.1 mg/dL (8.4-10.2); Total Bilirubin 0.2 mg/dL (0.2-1.3); Total Protein 5.3 g/dL (6.3-8.2)
--- NOTE | 2019-10-27 11:12 | P.DS ---
Providers Date of admission: 10/22/19 12:46 Expected date of discharge: 10/27/19 Attending physician: Lyndsay Moody Consults: 10/22/19 15:11 Consult Physician Routine Consulting Provider: Leticia Kapoor Consult Reason/Comments: possible cdiff Do you want consulting provider notified?: Yes Primary care physician: Al[facility] Course: Discharge diagnosis 1. Gastroenteritis with diarrhea. At this time stool for culture and C. diff ordered. Patient started on oral vancomycin possible C. diff infection. C. diff testing was negative at this time we are awaiting culture results. Per infectious disease Questran has been added. Awaiting stool cultures. Vancomycin has been DC'd per infectious disease. Per infectious disease discharge patient on Questran for 2 weeks. Stools have improved 2. History of hyperlipidemia. Patient maintained on statin 3. History of osteoarthritis to bilateral legs 4. Mentally challenged. Patient resides at [facility] facility has legal guardian 5. History of anxiety and depression. home meds resumed 6. ulcer on right fifth toe treating with local care 7. Hypokalemia. Potassium 3.2 replace per protocol. Resolved. Repeat potassium 4.0 8 Insomnia. Patient will be discharged on trazodone Hospital course This 84-year-old female patient was admitted as a direct admit from her PCP with concerns of possible C. diff infection. Per patient and family diarrhea has been occurring for over 3 weeks seems to occur after eating. Denies any blood in stool. Denies any nausea or vomiting. Denies any abdominal cramping. Per patient and family no recent antibiotic use. Patient's past medical history hyperlipidemia, osteoarthritis, mentally challenged and anxiety depression. At this time stool for C. diff and stool cultures ordered. Will consult infectious disease. Will start patient on vancomycin oral solution for possible C. diff infection. Normal saline at 75. Patient denies any chest pain or shortness of breath. Patient denies nausea vomiting or diarrhea. Patient denies any urinary burning or frequency. On 10/23/2019 agent was seen and examined on the medical floor she is alert and nonverbal in no apparent distress, family member at the bedside stated that patient had 3 more episodes of diarrhea this morning with liquid stools, C. diff testing was negative oral vancomycin was discontinued. Otherwise there is no complaints there is no fever or chills no headache or dizziness no chest pain no shortness of breath no cough no nausea or vomiting no abdominal pain and no urinary symptoms per caregiver. On 10/24/2019 patient is currently resting comfortably in bed. Per nursing staff patient was becoming more formed. Questran was started per infectious disease. At that time patient denies chest pain or shortness of breath. Patient denies nausea vomiting or diarrhea. Patient denies any urinary burning or frequency. 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 difficile is negative 10/26/2019, patient seen eval reexamined overall continued to improve diarrhea frequency have improved now able to sleep very well denies any abdominal pain, labs reviewed, care plan discussed with the coal picker at length On 10/27/2019 patient is resting comfortably in bed. Sister at bedside. Potassium has improved to 4.0. Patient will be DC'd on Questran. Stool cultures negative. At this time patient denies chest pain or shortness of breath. Patient denies nausea vomiting or diarrhea. Patient denies any urinary burning or frequency I performed an examination of the patient and discussed their management with the Nurse Practitioner. I have reviewed the Nurse Practitioner's notes and agree with the documented findings and plan of care Patient Condition at Discharge: Stable Plan - Discharge Summary Discharge Rx Participant: No New Discharge Prescriptions: New Pantoprazole [Protonix] 40 mg PO [facility] 30 Days #30 tablet. Cholestyramine (with Sugar) [Questran Packet] 4 gm PO BID@1000,1800 14 Days #28 packet traZODone HCL [Desyrel] 50 mg PO HS 30 Days #30 tab Continue PARoxetine HCL [Paxil] 40 mg PO DAILY Simvastatin [Zocor] 20 mg PO HS LORazepam [Ativan] 0.5 mg PO Q8H Naproxen 375 mg PO BID PRN PRN Reason: Pain Diphenox-Atrop 2.5-0.025 mg [Lomotil] 1 tab PO Q6H PRN PRN Reason: Loose Stool Discontinued Propranolol [Inderal] 20 mg PO DIRECTED Discharge Medication List Diphenox-Atrop 2.5-0.025 mg [Lomotil] 1 tab PO Q6H PRN 10/22/19 [History] LORazepam [Ativan] 0.5 mg PO Q8H 10/22/19 [History] Naproxen 375 mg PO BID PRN 10/22/19 [History] PARoxetine HCL [Paxil] 40 mg PO DAILY 10/22/19 [History] Simvastatin [Zocor] 20 mg PO HS 10/22/19 [History] Cholestyramine (with Sugar) [Questran Packet] 4 gm PO BID@1000,1800 14 Days #28 packet 10/27/19 [Rx] Pantoprazole [Protonix] 40 mg PO AC-BRKFST 30 Days #30 tablet. 10/27/19 [Rx] traZODone HCL [Desyrel] 50 mg PO HS 30 Days #30 tab 10/27/19 [Rx] Follow up Appointment(s)/Referral(s): Lyndsay Moody MD [STAFF PHYSICIAN] - 1 Week Activity/Diet/Wound Care/Special Instructions: Activity as tolerated Diet heart healthy Discharge Disposition: HOME SELF-CARE
--- NOTE | 2019-10-27 15:05 | PN ---
PROGRESS NOTE DATE OF SERVICE: 10/27/2019 REASON FOR FOLLOW UP: Diarrhea. INTERVAL HISTORY: The patient is seen on rounds earlier this afternoon. The patient overall is feeling better. Breathing comfortably. Denies having any chest pain or cough. No abdominal pain, diarrhea has resolved. PHYSICAL EXAMINATION: Blood pressure is 127/82 with a pulse of 89, temperature 97.5. She is 96% on room air. General description is an elderly female, lying in bed in no distress. RESPIRATORY SYSTEM: Unlabored breathing, clear to auscultation anteriorly. HEART: S1, S2. Regular rate and rhythm. ABDOMEN: Soft, no tenderness. LABS: Hemoglobin is 10.6, white count of 8.2 with a creatinine of 0.85. DIAGNOSTIC IMPRESSION AND PLAN: Patient admitted to the hospital with diarrhea and this patient workup so far negative for infectious etiology. The patient responded symptomatically with Questran which should be used as needed. Daughter was at the bedside. Her questions were answered. No need for any systemic antibiotic therapy on discharge. MMODL / IJN: [id number] /
== END 2019-10-27 13:15 | disposition home or self-care (01) | DRG 392 ==
LOC: 4SSUR 12:46
PROVIDERS: ADMIT Internal Medicine; ATTEND Internal Medicine
DX: K52.9 Noninfective gastroenteritis and colitis, unspecified (principal); E78.5 Hyperlipidemia, unspecified; E87.6 Hypokalemia; F32.9 Major depressive disorder, single episode, unspecified; F41.1 Generalized anxiety disorder; G47.00 Insomnia, unspecified; L97.519 Non-pressure chronic ulcer of other part of right foot with unspecified severity; M17.0 Bilateral primary osteoarthritis of knee; Z79.899 Other long term (current) drug therapy; Z90.710 Acquired absence of both cervix and uterus; R25.1 Tremor, unspecified
CPT/HCPCS: 80053; 85025; 87045; 87046; 87324; 87493

== ENCOUNTER 2019-11-03 21:39 | Inpatient (IN) | payer MEDICARE, OTHER ==
--- NOTE | 2019-11-03 21:41 | ED ---
Chest Pain HPI - General Stated Complaint: palpitations Time Seen by Provider: 11/03/19 21:40 Source: RN notes reviewed, old records reviewed Limitations: language barrier, altered mental status - History of Present Illness Initial Comments: This is a 84-year-old female VAP secondary developmental delay difficulty hearing presenting with chest pain today. Family states patient has been decreased with unresponsiveness not acting appropriately. Patient was receiving the hospital for similar type complaints she did not significantly improve upon discharge was discharged. She was acting normally throughout most of the week [place] symptoms were noticed today. Patient's right eye by family who provides history as well as EMS MD Complaint: chest pain (And palpitations) -: hour(s) Onset: during rest Pain Location: substernal Pain Radiation: none Severity: mild Severity scale (1-10): 3 Quality: tightness, heaviness Consistency: intermittent Improves With: nothing Worsens With: nothing, inspiration Context: new medications Treatments Prior to Arrival: none - Related Data Home Medications Medication Instructions Recorded Confirmed LORazepam [Ativan] 0.5 mg PO Q8H 10/22/19 11/03/19 Naproxen 375 mg PO BID PRN 10/22/19 11/03/19 PARoxetine HCL [Paxil] 40 mg PO DAILY 10/22/19 11/03/19 Simvastatin [Zocor] 20 mg PO HS 10/22/19 11/03/19 Cholestyramine (with Sugar) 4 gm PO BID 11/03/19 11/03/19 [Questran Packet] Melatonin 5 mg PO HS 11/03/19 11/03/19 Previous Rx's Medication Instructions Recorded Pantoprazole [Protonix] 40 mg PO AC-BRKFST 30 Days #30 10/27/19 tablet. traZODone HCL [Desyrel] 50 mg PO HS 30 Days #30 tab 10/27/19 Allergies Allergy/AdvReac Type Severity Reaction Status Date / Time donepezil [From Aricept] AdvReac Vomiting Verified 11/03/19 23:31 Review of Systems ROS Statement: Those systems with pertinent positive or pertinent negative responses have been documented in the HPI. ROS Other: All systems not noted in ROS Statement are negative. EKG Findings - EKG Comments: EKG Findings:: EKG shows sinus rhythm rate of 65, SC 134, QRS 80, QTC 454 Past Medical History Past Medical History: Hyperlipidemia, Osteoarthritis (OA) Additional Past Medical History / Comment(s): Mentally challenged, arthritis mostly in bilateral legs, tremors of arms/hands. History of Any Multi-Drug Resistant Organisms: None Reported Past Surgical History: Hysterectomy Additional Past Surgical History / Comment(s): Colonoscopy Past Anesthesia/Blood Transfusion Reactions: No Reported Reaction Smoking Status: Never smoker - Past Family History Father Family Medical History: No Reported History Additional Family Medical History / Comment(s): Father was healthy Mother Family Medical History: No Reported History Additional Family Medical History / Comment(s): Mother was healthy General Exam General appearance: alert, in no apparent distress Head exam: Present: atraumatic, normocephalic, normal inspection Eye exam: Present: normal appearance, PERRL, EOMI. Absent: scleral icterus, con junctival injection, periorbital swelling ENT exam: Present: normal exam, mucous membranes moist Neck exam: Present: normal inspection. Absent: tenderness, meningismus, lymphadenopathy Respiratory exam: Present: normal lung sounds bilaterally. Absent: respiratory distress, wheezes, rales, rhonchi, stridor Cardiovascular Exam: Present: regular rate, normal rhythm, normal heart sounds. Absent: systolic murmur, diastolic murmur, rubs, gallop, clicks GI/Abdominal exam: Present: soft, normal bowel sounds. Absent: distended, tenderness, guarding, rebound, rigid Extremities exam: Present: normal inspection, full ROM, normal capillary refill. Absent: tenderness, pedal edema, joint swelling, calf tenderness Back exam: Present: normal inspection Neurological exam: Present: alert, oriented X3, CN II-XII intact Psychiatric exam: Present: normal affect, normal mood Skin exam: Present: warm, dry, intact, normal color. Absent: rash Course Vital Signs 11/03/19 21:42 Temperature 97.8 F Pulse Rate 89 Respiratory 16 Rate Blood Pressure 138/74 O2 Sat by Pulse 94 L Oximetry - Reevaluation(s) Reevaluation #1: 11/04/19 00:25 Medical records reviewed - Consultations Consultation #1: Spoke with doctor Heidy who is agreeable to admit Chest Pain MDM - MDM 2 female and in with chest pain nonspecific chest pain [place] for transfer observation and hydration. X-ray and CT brain are negative for acute disease Disposition Clinical Impression: Chest pain Disposition: ADMITTED IP TO THIS HOSP Condition: Undetermined Is patient prescribed a controlled substance at d/c from ED?: No
[2019-11-03 22:19] LABS: Basophils % (A) 0 %; Eosinophils # (A) 0.2 k/uL (0-0.7); Eosinophils % (A) 3 %; HCT 34.4 % (34.0-46.0); HGB 11.3 gm/dL (11.4-16.0); Lymphocytes # (A) 1.8 k/uL (1.0-4.8); Lymphocytes % (A) 28 %; MCHC 32.9 g/dL (31.0-37.0); MCV 97.3 fL (80.0-100.0); Mean Platelet Volume 7.7; Monocytes # (A) 0.4 k/uL (0-1.0); Monocytes % (A) 7 %; Neutrophils % (A) 61 %; Platelet Count 272 k/uL (150-450); RBC 3.53 m/uL (3.80-5.40); RDW 13.5 % (11.5-15.5); WBC 6.5 k/uL (3.8-10.6)
[2019-11-03 22:29] LABS: Albumin 3.5 g/dL (3.5-5.0); Calcium 9.4 mg/dL (8.4-10.2); INR 0.9 (<1.2); Prothrombin Time 9.5 sec (9.0-12.0); Total Bilirubin 0.5 mg/dL (0.2-1.3); Total Protein 6.4 g/dL (6.3-8.2)
[2019-11-03 22:37] LABS: Potassium 4.5 mmol/L (3.5-5.1)
[2019-11-03] MEDS ORDERED: SODIUM CHLORIDE 0.9% 1,000 ML IV STA (23:02)
--- NOTE | 2019-11-03 23:05 | XR ---
EXAMINATION TYPE: XR chest 2V DATE OF EXAM: 11/03/2019 COMPARISON: 12/08/2011 HISTORY: Chest pain TECHNIQUE: Frontal and lateral views of the chest are obtained. FINDINGS: Heart and mediastinum are normal. Lungs are clear of consolidation. There is no heart fail ure. There is slight blunting of the costophrenic angles. There are chest leads. There is slight loss of height of T9 vertebra. IMPRESSION: There are small pleural effusions that appears new compared to old exam. No heart failu re seen. There is clearing of minimal right middle lobe infiltrate compared to old exam.
[2019-11-03] MEDS ORDERED: NITROGLYCERIN SL TABS 0.4 MG TAB SUBLINGUAL PRN (23:06)
[2019-11-03] MEDS ORDERED: ASPIRIN 81 MG PO STA (23:06)
--- NOTE | 2019-11-03 23:55 | CT ---
EXAMINATION TYPE: CT brain wo con DATE OF EXAM: 11/03/2019 COMPARISON: None HISTORY: AMS CT DLP: 1011.4 mGycm Automated exposure control for dose reduction was used. There is diffuse cerebral atrophy. There is no mass effect nor midline shift. There is no sign of int racranial hemorrhage. Calvarium is intact. IMPRESSION: Cerebral atrophy. No acute intracranial abnormality.
[2019-11-04 00:55] LABS: Appearance,Urine Cloudy (Clear); Bilirubin,Urine Negative (Negative); Blood,Urine Moderate (Negative); Color,Urine Yellow; Glucose,Urine (UA) Negative (Negative); Hyaline Casts,Urine 15 /lpf (0-2); Ketones,Urine Negative (Negative); Leukocyte Esterase,Urine Moderate (Negative); Mucus,Urine Occasional /hpf; Nitrite,Urine Negative (Negative); PH, Urine 5.5 (5.0-8.0); Protein,Urine 1+ (Negative); RBC,Urine 117 /hpf (0-5); Specific Gravity,Urine 1.022 (1.001-1.035); Squamous Epithelial Cell,Urine 1 /hpf (0-4); Urobilinogen,Urine <2.0 mg/dL (<2.0); WBC,Urine 39 /hpf (0-5)
[2019-11-04 04:32] LABS: Cholesterol 178 mg/dL (<200); HDL Cholesterol 97 mg/dL (40-60); LDL Cholesterol,Calculated 69 mg/dL (0-99); Triglycerides 61 mg/dL (<150)
[2019-11-04] MEDS: ASPIRIN 325 MG TAB PO SCH (09:19)
[2019-11-04] MEDS ORDERED: LORazepam 0.5 MG TAB PO PRN (10:30)
--- NOTE | 2019-11-04 10:43 | P.HPIM ---
History of Present Illness H&P Date: 11/04/19 Chief Complaint: chest pain, altered mental status this is an 84-year-old female patient of Dr. Obando.patient presented with complaints of chest pain and altered mental status changes.patient has a developmental delay. patient's sister at bedside. patient was recently admitted on 10/22/2019 with gastroenteritis. Additional medical history includes hyperlipidemia osteoarthritis, tremors anxiety and depression. head CT completed showing no acute process. per patient's sister patient was complaining of midsternal chest discomfort. Troponin negative 2. UA showing moderate amount of leukocyte E Estrace. Urine culture ordered. Patient started on Rocephin. Patient is complaining of some abdominal distention and tenderness. Will order ultrasound of abdomen. Chest x-rag small pleural effusion. Pulmonary services will be consulted. cardiology service is consulted for chest pain. At this time patient denies any chest pain or shortness of breath.. Denies nausea, vomitting or diarrhea. Denies any urinary burning or frequency. Review of Systems please refer to HPI otherwise unremarkable Past Medical History Past Medical History: Hyperlipidemia, Osteoarthritis (OA) Additional Past Medical History / Comment(s): Pt recently admitted to [facility] on 10/22/19 with gastroenteritis/R 5th toe ulcer, hypokalemia and insomnia. Other hx: Mentally challenged, arthritis mostly in bilateral legs, tremors of arms/hands. History of Any Multi-Drug Resistant Organisms: None Reported Past Surgical History: Hysterectomy Additional Past Surgical History / Comment(s): Colonoscopy Past Anesthesia/Blood Transfusion Reactions: No Reported Reaction Smoking Status: Never smoker - Past Family History Father Family Medical History: No Reported History Additional Family Medical History / Comment(s): Father was healthy Mother Family Medical History: No Reported History Additional Family Medical History / Comment(s): Mother was healthy Medications and Allergies Home Medications Medication Instructions Recorded Confirmed Type LORazepam [Ativan] 0.5 mg PO Q8H 10/22/19 11/03/19 History Naproxen 375 mg PO BID PRN 10/22/19 11/03/19 History PARoxetine HCL [Paxil] 40 mg PO DAILY 10/22/19 11/03/19 History Simvastatin [Zocor] 20 mg PO HS 10/22/19 11/03/19 History Pantoprazole [Protonix] 40 mg PO AC-BRKFST 30 Days #30 10/27/19 11/03/19 Rx tablet. traZODone HCL [Desyrel] 50 mg PO HS 30 Days #30 tab 10/27/19 11/03/19 Rx Cholestyramine (with Sugar) 4 gm PO BID 11/03/19 11/03/19 History [Questran Packet] Melatonin 5 mg PO HS 11/03/19 11/03/19 History Allergies Allergy/AdvReac Type Severity Reaction Status Date / Time donepezil [From Aricept] AdvReac Vomiting Verified 11/03/19 23:31 Physical Exam Vitals: Vital Signs Temp Pulse Resp BP Pulse Ox 11/04/19 09:22 97.7 F 87 19 131/71 95 11/04/19 06:00 84 20 124/84 97 11/04/19 05:00 77 18 121/71 97 11/04/19 04:00 83 20 124/84 97 11/04/19 03:00 85 20 122/84 97 11/04/19 02:00 81 20 120/69 97 11/04/19 00:00 84 16 120/76 98 11/03/19 21:42 97.8 F 89 16 138/74 94 L Intake and Output 11/03/19 11/04/19 11/04/19 22:59 06:59 14:59 Other: Weight 54.431 kg 54.431 kg Head normocephalic Neck supple Lungs clear to auscultation bilaterally no wheezing or crackles Heart regular rate and rhythm S1-S2, no rub or gallop Abdomen is slightly distended tender to touch Extremities no edema Neuro evelopmentally delayed does follow commands. Results CBC & Chem 7: 11/03/19 22:11 11/03/19 22:11 Labs: Abnormal Lab Results - Last 24 Hours (Table) 11/03/19 11/03/19 11/04/19 Range/Units 22:11 22:11 00:34 RBC 3.53 L (3.80-5.40) m/uL Hgb 11.3 L (11.4-16.0) gm/dL BUN 26 H (7-17) mg/dL Glucose 117 H (74-99) mg/dL HDL Cholesterol (40-60) mg/dL Urine Appearance Cloudy H (Clear) Urine Protein 1+ H (Negative) Urine Blood Moderate H (Negative) Ur Leukocyte Esterase Moderate H (Negative) Urine RBC 117 H (0-5) /hpf Urine WBC 39 H (0-5) /hpf Hyaline Casts 15 H (0-2) /lpf Urine Mucus Occasional H (None) /hpf 11/04/19 Range/Units 03:53 RBC (3.80-5.40) m/uL Hgb (11.4-16.0) gm/dL BUN (7-17) mg/dL Glucose (74-99) mg/dL HDL Cholesterol 97 H (40-60) mg/dL Urine Appearance (Clear) Urine Protein (Negative) Urine Blood (Negative) Ur Leukocyte Esterase (Negative) Urine RBC (0-5) /hpf Urine WBC (0-5) /hpf Hyaline Casts (0-2) /lpf Urine Mucus (None) /hpf Thrombosis Risk Factor Assmnt - Choose All That Apply Any of the Below Risk Factors Present?: Yes Other Risk Factors: Yes Each Risk Factor Represents 3 Points: Age 75 years or older Other congenital or acquired thrombophilia - If yes, enter type in comment: No Thrombosis Risk Factor Assessment Total Risk Factor Score: 3 Thrombosis Risk Factor Assessment Level: Moderate Risk Assessment and Plan Assessment: 1. Chest pain.troponins negative 2. cardiology services have been consulted. 2. Altered mental status possibly secondary to urinary tract 3. Urinary tract infection. UA showing moderate amount of leukocyte Estrace Urine culture ordered. Lactic Acid ordered. Patient started on rocephin 4. Abdominal distention and discomfort. Ultrasound of abdomen ordered. lipase 39 5. Small pleural effusion. pulmonary service is consulted 6. Recent admission for gastroenteritis with diarrhea. C. diff testing of the time was negative. Symptoms have resolved. 7. history of hyperlipidemia 8. History of osteoarthritis to bilateral legs 9. mentally challenged 10. History of anxiety and depression. home meds resumed 11. History of insomnia. Patient maintained on trazadone DVT prophylaxis heparin. GI prophylaxis Pepcid PT OT consulted Social work consulted for discharge possible [place] Time with Patient: Greater than 30 (Greater than 60% of the total time spent in counseling and coordination of care. I performed an examination of the patient and discussed their management with the Nurse Practitioner. I have reviewed the Nurse Practitioner's notes and agree with the documented findings and plan of care)
[2019-11-04 11:14] LABS: Basophils % (A) 0 %; Eosinophils # (A) 0.1 k/uL (0-0.7); Eosinophils % (A) 1 %; HCT 33.3 % (34.0-46.0); Lymphocytes # (A) 1.1 k/uL (1.0-4.8); Lymphocytes % (A) 17 %; MCH 32.8 pg (25.0-35.0); MCHC 33.1 g/dL (31.0-37.0); MCV 99.1 fL (80.0-100.0); Mean Platelet Volume 7.3; Monocytes # (A) 0.3 k/uL (0-1.0); Monocytes % (A) 5 %; Neutrophils # (A) 4.5 k/uL (1.3-7.7); Neutrophils % (A) 74 %; Platelet Count 270 k/uL (150-450); RBC 3.36 m/uL (3.80-5.40); RDW 13.6 % (11.5-15.5); WBC 6.1 k/uL (3.8-10.6)
--- NOTE | 2019-11-04 11:24 | US ---
EXAMINATION TYPE: US abdomen complete DATE OF EXAM: 11/04/2019 COMPARISON: NONE CLINICAL HISTORY: abdominal discomfort/distention. Poor historian. Patient is not NPO. EXAM MEASUREMENTS: Liver Length: 11.7 cm Gallbladder Wall: 0.4 cm CBD: 0.4 cm Spleen: 6.7 cm Right Kidney: 7.9 x 4.4 x 3.6 cm Left Kidney: 8.3 x 4.5 x 4.2 cm Pancreas: Echogenic in appearance which is a nonspecific finding. Portions Limited by bowel gas. Liver: Multiple cystic appearing lesions. Largest on right = 2.7 x 2.9 x 2.2 cm. Largest on left- 2.0 x 2.7 x 1.7 cm Gallbladder: Echogenic focus with shadow- 1.5 cm. Not fully distended. Wall- 0.4 cm Evidence for sonographic Clarke's sign: neg CBD: wnl Spleen: wnl Right Kidney: Appears small in size Left Kidney: Appears small in size Upper IVC: wnl Abd Aorta: Distal obscured by overlying bowel gas. No AAA visualized in portions seen. IMPRESSION: 1. . Multiple hepatic cysts. 2. Cholelithiasis with mild wall thickening likely related to incomplete distention. Cholecystitis in the differential diagnosis. Correlate clinically. 3. Simple hepatic cysts
[2019-11-04 11:27] LABS: Albumin 3.3 g/dL (3.5-5.0); Calcium 9.2 mg/dL (8.4-10.2); Potassium 4.5 mmol/L (3.5-5.1); Total Bilirubin 0.3 mg/dL (0.2-1.3); Total Protein 6.1 g/dL (6.3-8.2)
--- NOTE | 2019-11-04 17:21 | CONS ---
CONSULTATION REASON FOR CONSULTATION: Right-sided pleural effusion. HISTORY OF PRESENT ILLNESS: This is a very pleasant, very elderly 84-year-old female who apparently has got a history of developmental delay. The patient apparently presents to the emergency room with chest discomfort. Family members at the bedside with her. Most of the history comes from the family member who states that she thinks that Kelsey likely had some anxiety. She apparently was not acting her usual self. This was not real specific in terms of what she was talking about. Anyway, the patient apparently did not have any respiratory issues. There were no chest pains or chest discomfort. The patient apparently had some palpitations. A chest x-ray was done and showed very tiny right- sided pleural effusion, which is why we were consulted. The patient denies any fever, chills. There is no shortness of breath. No chest pain or chest discomfort. No hemoptysis. The patient denies a prior history of any lung issues. She is a lifelong nonsmoker. She specifically denies any history of pneumonia, COPD, asthma, chronic bronchitis, emphysema, etc. Anyway, the patient is currently on room air. Not demonstrating any signs or symptoms of shortness of breath. Her primary care provider is either Dr. Jesus Obando or Dr. Moody. MEDICATIONS: Reviewed. They include Ativan, naproxen, Paxil, Zocor, Questran, melatonin, Protonix, Desyrel. ALLERGIES: ARICEPT. MEDICAL HISTORY: Hyperlipidemia and osteoarthritis. Other medical history includes arthritis as well as tremors and developmental delay in a patient who is chronically mentally challenged. SURGICAL HISTORY: Includes hysterectomy and colonoscopy. SOCIAL HISTORY: Negative for tobacco use, alcohol use or illicit drug use. FAMILY HISTORY: Insignificant. Apparently mother and father are both healthy. REVIEW OF SYSTEMS: CONSTITUTIONAL: "Acting strange". NEUROLOGIC: Anxiety. HEENT negative. CARDIOVASCULAR negative. PULMONARY negative. GI negative. negative. RHEUMATOLOGIC negative. IMMUNOLOGIC negative ENDOCRINOLOGIC negative. DERMATOLOGIC negative. PHYSICAL EXAMINATION: VITAL SIGNS: Current vital signs are reviewed. Her temperature is 97.7. Heart rate 87, respiratory rate 16, blood pressure 137/60, mean 85. Room air saturation 96%. GENERAL: Appears in no acute distress. HEENT examination is grossly unremarkable. Mucous membranes are moist. No oral lesions. Not on any supplemental oxygen. NECK: Supple. Full range of motion. No adenopathy, thyromegaly or neck vein distention. CARDIOVASCULAR examination reveals regular rhythm rate. S1, S2 normal. No murmur. Heart rate 87. LUNG tariq are clear. Breath sounds equal. No wheezes, rhonchi, or crackles. ABDOMEN: Soft. Bowel sounds are heard. No masses or tenderness. EXTREMITIES are intact. No cyanosis, clubbing, or edema. SKIN: Without rash. NEUROLOGIC: Examination is difficult, given her developmental delay, but appears to be relatively normal. She does move all 4 extremities. LABS: Reviewed. White count 6.1, hemoglobin 11, hematocrit 33.3, platelet count 270,000. PT/INR, PTT normal. Sodium 140, potassium 4.5, chloride 104. CO2 32. Anion gap 4. BUN and creatinine were 21 and 0.9. The rest of her labs look okay. Her lipase was normal. Her urine is cloudy. Specific gravity 1.022, 1+ protein, moderate blood. Her leukocyte esterase was moderately positive. Her urine RBCs 117, urine WBCs 39, squamous epithelial cells 1, 50 hyaline casts. Urine mucus is occasional. Chest x-ray reveals a very tiny right-sided pleural effusion. No heart failure. Microbiology is pending. Medications are reviewed. She is currently on aspirin, Lipitor, ceftriaxone, Questran, Pepcid, subcu heparin, Ativan, nitroglycerin, Protonix, Paxil, and trazodone. ASSESSMENT: 1. Very tiny right-sided pleural effusion, of no clinical significance in a patient without any lung issues and who is a life long nonsmoker. 2. History of developmental delay/mentally challenged. 3. History of hyperlipidemia. 4. History of osteoarthritis. 5. History of tremors. 6. Status post hysterectomy. PLAN: The patient is doing well. Not on any supplemental oxygen. No respiratory issues. No difficulty breathing coughing wheezing or phlegm production. No prior history of any lung disorders, such as COPD, emphysema, chronic bronchitis, asthma, etc. We will see the patient only as needed. Thank you very much for this consultation. MMODL / IJN: [id number] /
[2019-11-04] MEDS: ATORVASTATIN 10 MG TAB PO SCH (20:02)
[2019-11-04] MEDS: CHOLESTYRAMINE (WITH SUGAR) 4 GM PACKET PO SCH (20:02)
[2019-11-04] MEDS: traZODone HCL 50 MG TAB PO SCH (20:02)
[2019-11-04] MEDS: HEPARIN SODIUM,PORCINE 5,000 UNIT/ML 1 ML VIAL SQ SCH (20:02)
[2019-11-05] MEDS: PANTOPRAZOLE 40 MG TABLET PO SCH (06:23)
[2019-11-05 06:47] LABS: Basophils % (A) 0 %; Eosinophils # (A) 0.1 k/uL (0-0.7); Eosinophils % (A) 3 %; Lymphocytes # (A) 1.6 k/uL (1.0-4.8); Lymphocytes % (A) 32 %; MCH 31.5 pg (25.0-35.0); MCHC 32.2 g/dL (31.0-37.0); MCV 97.9 fL (80.0-100.0); Mean Platelet Volume 8.3; Monocytes # (A) 0.5 k/uL (0-1.0); Monocytes % (A) 10 %; Neutrophils # (A) 2.6 k/uL (1.3-7.7); Neutrophils % (A) 53 %; Platelet Count 231 k/uL (150-450); RBC 3.48 m/uL (3.80-5.40); RDW 13.5 % (11.5-15.5); WBC 4.9 k/uL (3.8-10.6)
[2019-11-05 07:03] LABS: Albumin 3.3 g/dL (3.5-5.0); Calcium 9.5 mg/dL (8.4-10.2); Potassium 4.3 mmol/L (3.5-5.1); Total Bilirubin 0.4 mg/dL (0.2-1.3); Total Protein 6.1 g/dL (6.3-8.2)
[2019-11-05] MEDS: PARoxetine 20 MG TAB PO SCH (09:27)
[2019-11-05] MEDS: ASPIRIN 325 MG TAB PO SCH (09:27)
[2019-11-05] MEDS: FAMOTIDINE 20 MG TAB PO SCH (09:27)
[2019-11-05] MEDS: CHOLESTYRAMINE (WITH SUGAR) 4 GM PACKET PO SCH ×2 (09:28→20:03)
[2019-11-05] MEDS: HEPARIN SODIUM,PORCINE 5,000 UNIT/ML 1 ML VIAL SQ SCH ×2 (09:28→20:04)
--- NOTE | 2019-11-05 11:34 | CDI ---
Documentation Clarification Form Date: 11/05/2019 11:05:59 AM From: Hevaen Delarosa RN, CCDS Admit Date: 11/04/2019 10:44:00 AM Patient Name: Kelsey Suarez Visit Number: [id number] Discharge Date: ATTENTION: The Clinical Documentation Specialists (CDI) and [facility] Coding Staff appreciate your assistance in clarifying documentation. Please respond to the clarification below the line at the bottom and electronically sign. The CDI & [facility] Coding staff will review the response and follow-up if needed. Please note: Queries are made part of the Legal Health Record. If you have any questions, please contact the author of this message via ITS. Dr. Lyndsay Moody Altered Mental Status was documented in the ED assessment, and the History and Physical and further clarification is needed. 11/04/19 History & Physical: Altered mental status possible secondary to urinary tract. History/Risk Factors: Developmental delay, Mentally challenged, Hyperlipidemia Clinical Indicators: 84-year-old female present with palpations, chest pain and had altered mental status. She has history of developmental delay and difficulty hearing, but family states it has been decreased with unresponsiveness, not acting appropriately. Vital signs 11/04/19 @ 21:42 138/74 89 16 97.8 94 % RA 11/03/19 Ct Brain: Cerebral atrophy. no acute intracranial abnormality 11/03/19 Chest x-ray: small pleural effusion. Labs: 11/03/19 WBC 6.5, UA: Leukocyte Esterase -Moderate, ur WBC 39, Hyaline casts 15 Urine culture: Pending Treatment: Rocephin IV Neurological Assessment per protocol In your professional opinion, please clarify the etiology of the Altered Mental Status, if known. Metabolic Encephalopathy due to Urinary tract infection Other condition (please specify) Unable to determine (Last Revision: February 2018) Metabolic encephalopathy due to UTI MTDD
--- NOTE | 2019-11-05 11:41 | P.PN ---
Subjective Progress Note Date: 11/05/19 this is an 84-year-old female patient of Dr. Obando.patient presented with complaints of chest pain and altered mental status changes.patient has a developmental delay. patient's sister at bedside. patient was recently admitted on 10/22/2019 with gastroenteritis. Additional medical history includes hyp erlipidemia osteoarthritis, tremors anxiety and depression. head CT completed showing no acute process. per patient's sister patient was complaining of midsternal chest discomfort. Troponin negative 2. UA showing moderate amount of leukocyte E Estrace. Urine culture ordered. Patient started on Rocephin. Patient is complaining of some abdominal distention and tenderness. Will order ultrasound of abdomen. Chest x-rag small pleural effusion. Pulmonary services will be consulted. cardiology service is consulted for chest pain. At this time patient denies any chest pain or shortness of breath.. Denies nausea, vomitting or diarrhea. Denies any urinary burning or frequency. On 11/05/2019 patient is alert and sitting comfortably in chair family at bedside. Patient working with physical therapy. At this time patient is getting treated with IV antibiotics for urinary tract infection urine culture pending. Patient denies chest pain or shortness of breath. Patient denies nausea vomiting or diarrhea. Patient denies any urinary burning or frequency Objective - Vital Signs Vital signs: Vital Signs Temp 97.4 F L 11/05/19 08:00 Pulse 89 11/05/19 08:00 Resp 14 11/05/19 08:00 BP 127/60 11/05/19 08:00 Pulse Ox 97 11/05/19 08:00 Intake & Output 11/04/19 11/05/19 11/05/19 18:59 06:59 18:59 Intake Total 180 180 Balance 180 180 Weight 54.431 kg 48.1 kg Intake: Oral 180 180 Other: Voiding Method Toilet Toilet # Voids 1 1 - Exam Head normocephalic Neck supple Lungs clear to auscultation bilaterally no wheezing or crackles Heart regular rate and rhythm S1-S2, no rub or gallop Abdomen is slightly distended tender to touch Extremities no edema Neuro developmentally delayed does follow commands. - Labs CBC & Chem 7: 11/05/19 05:50 11/05/19 05:50 Labs: Abnormal Lab Results - Last 24 Hours (Table) 11/05/19 11/05/19 Range/Units 05:50 05:50 RBC 3.48 L (3.80-5.40) m/uL Hgb 11.0 L (11.4-16.0) gm/dL Carbon Dioxide 31 H (22-30) mmol/L Total Protein 6.1 L (6.3-8.2) g/dL Albumin 3.3 L (3.5-5.0) g/dL Microbiology - Last 24 Hours (Table) 11/04/19 00:34 Urine Culture - Preliminary Urine,Clean Catch Assessment and Plan Assessment: 1. Chest pain.troponins negative 2. cardiology services have been consulted. 2. Acute metabolic encephalopathy secondary to secondary to urinary tract infection. 3. Urinary tract infection. UA showing moderate amount of leukocyte Estrace Urine culture ordered. Lactic Acid 0.9. Patient started on rocephin 4. Abdominal distention and discomfort. Ultrasound of abdomen ordered. lipase 39. Ultrasound of abdomen completed showing multiple hepatic cysts. Cholelithiasis with mild wall thickening likely related to incomplete distention. Cholecystitis in the differential diagnosis poorly clinically simple hepatic cyst. 5. Small pleural effusion. pulmonary service is consulted. Per pulmonary clinical significance with pleural effusion at this time no further workup needed 6. Recent admission for gastroenteritis with diarrhea. C. diff testing of the time was negative. Symptoms have resolved. 7. history of hyperlipidemia 8. History of osteoarthritis to bilateral legs 9. mentally challenged 10. History of anxiety and depression. home meds resumed 11. History of insomnia. Patient maintained on trazadone DVT prophylaxis heparin. GI prophylaxis Pepcid PT OT consulted Social work consulted for discharge possible [place] I performed an examination of the patient and discussed their management with the Nurse Practitioner. I have reviewed the Nurse Practitioner's notes and agree with the documented findings and plan of care
--- NOTE | 2019-11-05 15:30 | P.CRDCN ---
History of Present Illness Consult date: 11/05/19 Requesting physician: Lyndsay Moody Consult reason: chest pain Chief complaint: Chest pain History of present illness: This is an 84-year-old female with known developmental delay, who was recently in the hospital in September with gastroenteritis, she has a history of hyperlipidemia and osteoarthritis. She presented to the hospital with symptoms of chest pain, most of the history was obtained from the medical record. Troponins were negative 3. Her EKG on presentation here showed a normal sinus rhythm with no acute changes. Chest x-ray shows small pleural effusions, appeared to be new as compared with prior exam. CAT scan of the brain shows cerebral atrophy with no acute intracranial abnormality. Ultrasound of the abdomen was also performed, shows multiple hepatic cysts, cholelithiasis with mild wall thickening likely related to incomplete distention. Cholecystitis in the differential diagnosis. Blood pressure 138/70 with a heart rate in the 70s, 94% on room air. White blood cell count is normal, hemoglobin 11, platelet count 231. Sodium 142, potassium 4.3, BUN 17, creatinine 0.8. Troponins negative 3. At the time of my examination, patient sitting comfortably up in the chair, up with physical therapy today. Denies any chest pain or difficulty in breathing at present. Past Medical History Past Medical History: Hyperlipidemia, Osteoarthritis (OA) Additional Past Medical History / Comment(s): Pt recently admitted to [facility] on 10/22/19 with gastroenteritis/R 5th toe ulcer, hypokalemia and insomnia. Other hx: Mentally challenged, arthritis mostly in bilateral legs, tremors of arms/hands. History of Any Multi-Drug Resistant Organisms: None Reported Past Surgical History: Hysterectomy Additional Past Surgical History / Comment(s): Colonoscopy Past Anesthesia/Blood Transfusion Reactions: No Reported Reaction Smoking Status: Never smoker - Past Family History Father Family Medical History: No Reported History Additional Family Medical History / Comment(s): Father was healthy Mother Family Medical History: No Reported History Additional Family Medical History / Comment(s): Mother was healthy Medications and Allergies Home Medications Medication Instructions Recorded Confirmed Type LORazepam [Ativan] 0.5 mg PO Q8H 10/22/19 11/03/19 History Naproxen 375 mg PO BID PRN 10/22/19 11/03/19 History PARoxetine HCL [Paxil] 40 mg PO DAILY 10/22/19 11/03/19 History Simvastatin [Zocor] 20 mg PO HS 10/22/19 11/03/19 History Pantoprazole [Protonix] 40 mg PO AC-BRKFST 30 Days #30 10/27/19 11/03/19 Rx tablet. traZODone HCL [Desyrel] 50 mg PO HS 30 Days #30 tab 10/27/19 11/03/19 Rx Cholestyramine (with Sugar) 4 gm PO BID 11/03/19 11/03/19 History [Questran Packet] Melatonin 5 mg PO HS 11/03/19 11/03/19 History Allergies Allergy/AdvReac Type Severity Reaction Status Date / Time donepezil [From Aricept] AdvReac Vomiting Verified 11/03/19 23:31 Physical Exam Vitals: Vital Signs Temp Pulse Resp BP Pulse Ox 11/05/19 12:00 75 17 138/72 94 L 11/05/19 08:00 97.4 F L 89 14 127/60 97 11/05/19 04:00 97.8 F 72 18 138/66 96 11/05/19 03:05 85 11/04/19 23:49 68 18 132/65 95 11/04/19 20:00 98 F 61 18 127/63 93 L 11/04/19 15:40 98 F 85 16 121/58 97 Intake and Output 11/05/19 11/05/19 11/05/19 06:59 14:59 22:59 Intake Total 300 Balance 300 Intake: Oral 300 Other: Voiding Method Toilet # Voids 1 Weight 48.1 kg . Head normocephalic Neck supple Lungs clear to auscultation bilaterally no wheezing or crackles Heart regular rate and rhythm S1-S2, no rub or gallop Abdomen is slightly distended tender to touch Extremities no edema Neuro evelopmentally delayed does follow commands. Results 11/05/19 05:50 11/05/19 05:50 Cardiac Enzymes 11/05/19 Range/Units 05:50 AST 19 (14-36) U/L CBC 11/05/19 Range/Units 05:50 WBC 4.9 (3.8-10.6) k/uL RBC 3.48 L (3.80-5.40) m/uL Hgb 11.0 L (11.4-16.0) gm/dL Hct 34.0 (34.0-46.0) % Plt Count 231 (150-450) k/uL Comprehensive Metabolic Panel 11/05/19 Range/Units 05:50 Sodium 142 (137-145) mmol/L Potassium 4.3 (3.5-5.1) mmol/L Chloride 106 (98-107) mmol/L Carbon Dioxide 31 H (22-30) mmol/L BUN 17 (7-17) mg/dL Creatinine 0.86 (0.52-1.04) mg/dL Glucose 81 (74-99) mg/dL Calcium 9.5 (8.4-10.2) mg/dL AST 19 (14-36) U/L ALT 25 (9-52) U/L Alkaline Phosphatase 75 (38-126) U/L Total Protein 6.1 L (6.3-8.2) g/dL Albumin 3.3 L (3.5-5.0) g/dL Current Medications Generic Name Dose Route Start Last Admin Trade Name Garryq PRN Reason Stop Dose Admin Aspirin 325 mg 11/04/19 09:00 11/05/19 09:27 Aspirin PO 325 mg DAILY ARONLD Administration Atorvastatin Calcium 10 mg 11/04/19 21:00 11/04/19 20:02 Lipitor PO 10 mg HS ARNOLD Administration Cholestyramine Resin 4 gm 11/04/19 21:00 11/05/19 09:28 Questran PO 4 gm BID ARNOLD Administration Famotidine 20 mg 11/05/19 09:00 11/05/19 09:27 Pepcid PO 20 mg DAILY ARNOLD Administration Heparin Sodium (Porcine) 5,000 unit 11/04/19 21:00 11/05/19 09:28 Heparin SQ 5,000 unit Q12HR ARNOLD Administration Ceftriaxone Sodium 1 gm/ 50 mls @ 100 mls/hr 11/04/19 09:00 11/05/19 09:28 Sodium Chloride IVPB 100 mls/hr Q24HR ARNOLD Administration Lorazepam 0.5 mg 11/04/19 10:30 Ativan PO Q8H PRN Anxiety Nitroglycerin 0.4 mg 11/03/19 23:06 Nitrostat SUBLINGUAL Q5M PRN Chest Pain Pantoprazole Sodium 40 mg 11/05/19 07:30 11/05/19 06:23 Protonix PO 40 mg AC-BRKFST ARNOLD Administration Paroxetine HCl 40 mg 11/05/19 09:00 11/05/19 09:27 Paxil PO 40 mg DAILY ARNOLD Administration Trazodone HCl 50 mg 11/04/19 21:00 11/04/19 20:02 Desyrel PO 50 mg HS ARNOLD Administration Intake and Output 11/05/19 11/05/19 11/05/19 06:59 14:59 22:59 Intake Total 300 Balance 300 Intake: Oral 300 Other: Voiding Method Toilet # Voids 1 Weight 48.1 kg 11/05/19 05:50 11/05/19 05:50 EKG Interpretations (text) EKG shows a normal sinus rhythm with no acute changes. Assessment and Plan Plan: Assessment: 1. Chest pain, atypical in nature.troponins negative 3. 2. Altered mental status possibly secondary to urinary tract infection 3. Urinary tract infection 4. Abdominal distention and discomfort. Ultrasound of abdomen ordered. lipase 39 5. Small pleural effusion. 6. Recent admission for gastroenteritis with diarrhea. C. diff testing of the time was negative. 7. history of hyperlipidemia 8. History of osteoarthritis to bilateral legs 9. mentally challenged 10. History of anxiety and depression. home meds resumed Plan We will obtain an echocardiogram with Doppler study. Patient's symptomology very atypical for acute coronary syndrome. We will decrease the aspirin to 81 mg daily, continue Lipitor 10 mg daily. Further recommendations to follow. DNP note has been reviewed, I agree with a documented findings and plan of care. Patient was seen and examined.
[2019-11-05] MEDS: traZODone HCL 50 MG TAB PO SCH (20:03)
[2019-11-05] MEDS: ATORVASTATIN 10 MG TAB PO SCH (20:04)
[2019-11-06] MEDS: PANTOPRAZOLE 40 MG TABLET PO SCH (06:11)
[2019-11-06 07:20] LABS: Basophils % (A) 1 %; Eosinophils # (A) 0.1 k/uL (0-0.7); Eosinophils % (A) 3 %; HCT 34.7 % (34.0-46.0); Lymphocytes # (A) 1.4 k/uL (1.0-4.8); Lymphocytes % (A) 30 %; MCH 31.5 pg (25.0-35.0); MCHC 31.8 g/dL (31.0-37.0); Mean Platelet Volume 7.5; Monocytes # (A) 0.3 k/uL (0-1.0); Monocytes % (A) 7 %; Neutrophils # (A) 2.6 k/uL (1.3-7.7); Neutrophils % (A) 56 %; Platelet Count 217 k/uL (150-450); RDW 13.5 % (11.5-15.5); WBC 4.7 k/uL (3.8-10.6)
[2019-11-06 07:36] LABS: Albumin 3.4 g/dL (3.5-5.0); Calcium 9.4 mg/dL (8.4-10.2); Potassium 4.2 mmol/L (3.5-5.1); Total Bilirubin 0.4 mg/dL (0.2-1.3); Total Protein 6.2 g/dL (6.3-8.2)
[2019-11-06] MEDS: PARoxetine 20 MG TAB PO SCH (09:13)
[2019-11-06] MEDS: HEPARIN SODIUM,PORCINE 5,000 UNIT/ML 1 ML VIAL SQ SCH ×2 (09:13→19:45)
[2019-11-06] MEDS: FAMOTIDINE 20 MG TAB PO SCH (09:13)
[2019-11-06] MEDS: ASPIRIN 325 MG TAB PO SCH (09:13)
[2019-11-06] MEDS: CHOLESTYRAMINE (WITH SUGAR) 4 GM PACKET PO SCH ×2 (09:13→19:49)
--- NOTE | 2019-11-06 11:14 | P.PN ---
Subjective Progress Note Date: 11/06/19 this is an 84-year-old female patient of Dr. Obando.patient presented with complaints of chest pain and altered mental status changes.patient has a developmental delay. patient's sister at bedside. patient was recently admitted on 10/22/2019 with gastroenteritis. Additional medical history includes hyp erlipidemia osteoarthritis, tremors anxiety and depression. head CT completed showing no acute process. per patient's sister patient was complaining of midsternal chest discomfort. Troponin negative 2. UA showing moderate amount of leukocyte E Estrace. Urine culture ordered. Patient started on Rocephin. Patient is complaining of some abdominal distention and tenderness. Will order ultrasound of abdomen. Chest x-rag small pleural effusion. Pulmonary services will be consulted. cardiology service is consulted for chest pain. At this time patient denies any chest pain or shortness of breath.. Denies nausea, vomitting or diarrhea. Denies any urinary burning or frequency. On 11/05/2019 patient is alert and sitting comfortably in chair family at bedside. Patient working with physical therapy. At this time patient is getting treated with IV antibiotics for urinary tract infection urine culture pending. Patient denies chest pain or shortness of breath. Patient denies nausea vomiting or diarrhea. Patient denies any urinary burning or frequency On 11/06/2019 patient is resting comfortably in bed. Family at bedside. Per case management patient needs 1 more night prior to discharge to [facility] for ECF placement. Surgical services have been consulted to evaluate ultrasound result. Patient remains on Rocephin for urinary tract infection. At this time patient denies chest pain or shortness of breath. Patient denies nausea vomiting or diarrhea. Patient denies any urinary burning or frequency Objective - Vital Signs Vital signs: Vital Signs Temp 98.2 F 11/06/19 03:14 Pulse 80 11/06/19 08:00 Resp 17 11/06/19 08:00 BP 146/63 11/06/19 08:00 Pulse Ox 93 L 11/06/19 08:00 Intake & Output 11/05/19 11/06/19 11/06/19 18:59 06:59 18:59 Intake Total 480 Balance 480 Weight 47.5 kg Intake: Oral 480 Other: Voiding Method Toilet Toilet Toilet # Voids 2 - Exam Head normocephalic Neck supple Lungs clear to auscultation bilaterally no wheezing or crackles Heart regular rate and rhythm S1-S2, no rub or gallop Abdomen is slightly distended tender to touch Extremities no edema Neuro developmentally delayed does follow commands. - Labs CBC & Chem 7: 11/06/19 06:49 11/06/19 06:49 Labs: Abnormal Lab Results - Last 24 Hours (Table) 11/06/19 11/06/19 Range/Units 06:49 06:49 RBC 3.50 L (3.80-5.40) m/uL Hgb 11.0 L (11.4-16.0) gm/dL BUN 18 H (7-17) mg/dL Total Protein 6.2 L (6.3-8.2) g/dL Albumin 3.4 L (3.5-5.0) g/dL Microbiology - Last 24 Hours (Table) 11/04/19 00:34 Urine Culture - Final Urine,Clean Catch Assessment and Plan Assessment: 1. Chest pain.troponins negative 2. cardiology services have been consulted. Per cardiology chest pains atypical in nature troponins negative 3. 2-D echo has been ordered. Aspirin will be decreased to 81 milligrams. Continue Lipitor 10 mg 2. Acute metabolic encephalopathy secondary to secondary to urinary tract infection. 3. Urinary tract infection. UA showing moderate amount of leukocyte Estrace Urine culture ordered. Lactic Acid 0.9. Patient started on rocephin 4. Abdominal distention and discomfort. Ultrasound of abdomen ordered. lipase 39. Ultrasound of abdomen completed showing multiple hepatic cysts. Cholelithiasis with mild wall thickening likely related to incomplete distention. Cholecystitis in the differential diagnosis poorly clinically simple hepatic cyst. Surgical services have been consulted 5. Small pleural effusion. pulmonary service is consulted. Per pulmonary clinical significance with pleural effusion at this time no further workup needed 6. Recent admission for gastroenteritis with diarrhea. C. diff testing of the time was negative. Symptoms have resolved. 7. history of hyperlipidemia 8. History of osteoarthritis to bilateral legs 9. mentally challenged 10. History of anxiety and depression. home meds resumed 11. History of insomnia. Patient maintained on trazadone DVT prophylaxis heparin. GI prophylaxis Pepcid PT OT consulted Social work consulted for discharge possible [facility] Plan for possible discharge to [facility] tomorrow I performed an examination of the patient and discussed their management with the Nurse Practitioner. I have reviewed the Nurse Practitioner's notes and a gree with the documented findings and plan of care
--- NOTE | 2019-11-06 11:24 | P.GSCN ---
<Neha Salas Lauren - Last Filed: 11/06/19 11:18> History of Present Illness Consult date: 11/06/19 Reason for Consult: abdominal discomfort Requesting physician: Sintia Richards History of present illness: CHIEF COMPLAINT: Abdominal pain HISTORY OF PRESENT ILLNESS: 84 year old female who originally presented to the hospital due to chest pain. General surgery was consulted to evaluate abdominal pain. Patient examined at the bedside this morning. Sister present. Patients sister gives majority of HPI. She denies abdominal pain. Denies nausea or vomiting. Tolerating diet. Passing flatus. Reports BM overnight. PAST MEDICAL HISTORY: See list. PAST SURGICAL HISTORY: See list. SOCIAL HISTORY: No illicit drug use. REVIEW OF SYSTEMS: CONSTITUTIONAL: Denies fever or chills. HEENT: Denies blurred vision, vision changes, or eye pain. Denies hemoptysis CARDIOVASCULAR: Denies chest pain or pressure. RESPIRATORY: No shortness of breath. GASTROINTESTINAL: Refer to HPI for pertinent findings HEMATOLOGIC: Denies bleeding disorders. GENITOURINARY: Denies any blood in urine. SKIN: Denies pruitis. Denies rash. PHYSICAL EXAM: VITAL SIGNS: Reviewed. GENERAL: Well-developed in no acute distress. HEENT: No sclera icterus. Extraocular movements grossly intact. Moist buccal mucosa. Head is atraumatic, normocephalic. ABDOMEN: Soft. Nondistended. Nontender. NEUROLOGIC: Alert and oriented. Cranial nerves II through XII grossly intact. LABORATORY DATA: WBC 4.7. Hemoglobin 11.0. Platelet count 217. Bilirubin 0.4. AST 21. ALT 21. IMAGING: Abdominal ultrasound: Multiple hepatic cyst. Cholelithiasis with mild wall thickening likely related to incomplete distention. ASSESSMENT: 1. Cholelithiasis PLAN: Patient's abdominal ultrasound does reveal evidence of cholelithiasis. However patient is completely asymptomatic. Continue diet as tolerated. No surgical intervention recommended. Stable for discharge from a surgical standpoint. Nurse practitioner note has been reviewed by physician. Signing provider agrees with the documented findings, assessment, and plan of care. Past Medical History Past Medical History: Hyperlipidemia, Osteoarthritis (OA) Additional Past Medical History / Comment(s): Pt recently admitted to [facility] on 10/22/19 with gastroenteritis/R 5th toe ulcer, hypokalemia and insomnia. Other hx: Mentally challenged, arthritis mostly in bilateral legs, tremors of arms/hands. History of Any Multi-Drug Resistant Organisms: None Reported Past Surgical History: Hysterectomy Additional Past Surgical History / Comment(s): Colonoscopy Past Anesthesia/Blood Transfusion Reactions: No Reported Reaction Smoking Status: Never smoker - Past Family History Father Family Medical History: No Reported History Additional Family Medical History / Comment(s): Father was healthy Mother Family Medical History: No Reported History Additional Family Medical History / Comment(s): Mother was healthy Medications and Allergies Home Medications Medication Instructions Recorded Confirmed Type LORazepam [Ativan] 0.5 mg PO Q8H 10/22/19 11/03/19 History Naproxen 375 mg PO BID PRN 10/22/19 11/03/19 History PARoxetine HCL [Paxil] 40 mg PO DAILY 10/22/19 11/03/19 History Simvastatin [Zocor] 20 mg PO HS 10/22/19 11/03/19 History Pantoprazole [Protonix] 40 mg PO AC-BRKFST 30 Days #30 10/27/19 11/03/19 Rx tablet. traZODone HCL [Desyrel] 50 mg PO HS 30 Days #30 tab 10/27/19 11/03/19 Rx Cholestyramine (with Sugar) 4 gm PO BID 11/03/19 11/03/19 History [Questran Packet] Melatonin 5 mg PO HS 11/03/19 11/03/19 History Allergies Allergy/AdvReac Type Severity Reaction Status Date / Time donepezil [From Aricept] AdvReac Vomiting Verified 11/03/19 23:31 Surgical - Exam Vital Signs Temp Pulse Resp BP Pulse Ox 97.8 F 89 16 138/74 94 L 11/03/19 21:42 11/03/19 21:42 11/03/19 21:42 11/03/19 21:42 11/03/19 21:42 Results - Labs 11/06/19 06:49 11/06/19 06:49 Abnormal Lab Results - Last 24 Hours (Table) 11/06/19 11/06/19 Range/Units 06:49 06:49 RBC 3.50 L (3.80-5.40) m/uL Hgb 11.0 L (11.4-16.0) gm/dL BUN 18 H (7-17) mg/dL Total Protein 6.2 L (6.3-8.2) g/dL Albumin 3.4 L (3.5-5.0) g/dL Microbiology - Last 24 Hours (Table) 11/04/19 00:34 Urine Culture - Final Urine,Clean Catch Diabetes panel 11/06/19 Range/Units 06:49 Sodium 142 (137-145) mmol/L Potassium 4.2 (3.5-5.1) mmol/L Chloride 105 (98-107) mmol/L Carbon Dioxide 30 (22-30) mmol/L BUN 18 H (7-17) mg/dL Creatinine 0.87 (0.52-1.04) mg/dL Glucose 89 (74-99) mg/dL Calcium 9.4 (8.4-10.2) mg/dL AST 21 (14-36) U/L ALT 21 (9-52) U/L Alkaline Phosphatase 74 (38-126) U/L Total Protein 6.2 L (6.3-8.2) g/dL Albumin 3.4 L (3.5-5.0) g/dL Calcium panel 11/06/19 Range/Units 06:49 Calcium 9.4 (8.4-10.2) mg/dL Albumin 3.4 L (3.5-5.0) g/dL Pituitary panel 11/06/19 Range/Units 06:49 Sodium 142 (137-145) mmol/L Potassium 4.2 (3.5-5.1) mmol/L Chloride 105 (98-107) mmol/L Carbon Dioxide 30 (22-30) mmol/L BUN 18 H (7-17) mg/dL Creatinine 0.87 (0.52-1.04) mg/dL Glucose 89 (74-99) mg/dL Calcium 9.4 (8.4-10.2) mg/dL Adrenal panel 11/06/19 Range/Units 06:49 Sodium 142 (137-145) mmol/L Potassium 4.2 (3.5-5.1) mmol/L Chloride 105 (98-107) mmol/L Carbon Dioxide 30 (22-30) mmol/L BUN 18 H (7-17) mg/dL Creatinine 0.87 (0.52-1.04) mg/dL Glucose 89 (74-99) mg/dL Calcium 9.4 (8.4-10.2) mg/dL Total Bilirubin 0.4 (0.2-1.3) mg/dL AST 21 (14-36) U/L ALT 21 (9-52) U/L Alkaline Phosphatase 74 (38-126) U/L Total Protein 6.2 L (6.3-8.2) g/dL Albumin 3.4 L (3.5-5.0) g/dL <Teja López - Last Filed: 11/06/19 14:18> History of Present Illness History of present illness: As above. Patient apparently was having some abdominal discomfort that has since resolved. Ultrasound showed gallstones with slight gallbladder wall thickening. Risks and benefits of cholecystectomy discussed with the patient. Patient does remain albeit confused. She would like to avoid surgery. No immediate plans for surgical intervention unless symptoms recur. We'll sign off. Please call if needed. Surgical - Exam Vital Signs Temp Pulse Resp BP Pulse Ox 97.8 F 89 16 138/74 94 L 11/03/19 21:42 11/03/19 21:42 11/03/19 21:42 11/03/19 21:42 11/03/19 21:42 Results - Labs 11/06/19 06:49 11/06/19 06:49 Abnormal Lab Results - Last 24 Hours (Table) 11/06/19 11/06/19 Range/Units 06:49 06:49 RBC 3.50 L (3.80-5.40) m/uL Hgb 11.0 L (11.4-16.0) gm/dL BUN 18 H (7-17) mg/dL Total Protein 6.2 L (6.3-8.2) g/dL Albumin 3.4 L (3.5-5.0) g/dL Microbiology - Last 24 Hours (Table) 11/04/19 00:34 Urine Culture - Final Urine,Clean Catch Diabetes panel 11/06/19 Range/Units 06:49 Sodium 142 (137-145) mmol/L Potassium 4.2 (3.5-5.1) mmol/L Chloride 105 (98-107) mmol/L Carbon Dioxide 30 (22-30) mmol/L BUN 18 H (7-17) mg/dL Creatinine 0.87 (0.52-1.04) mg/dL Glucose 89 (74-99) mg/dL Calcium 9.4 (8.4-10.2) mg/dL AST 21 (14-36) U/L ALT 21 (9-52) U/L Alkaline Phosphatase 74 (38-126) U/L Total Protein 6.2 L (6.3-8.2) g/dL Albumin 3.4 L (3.5-5.0) g/dL Calcium panel 11/06/19 Range/Units 06:49 Calcium 9.4 (8.4-10.2) mg/dL Albumin 3.4 L (3.5-5.0) g/dL Pituitary panel 11/06/19 Range/Units 06:49 Sodium 142 (137-145) mmol/L Potassium 4.2 (3.5-5.1) mmol/L Chloride 105 (98-107) mmol/L Carbon Dioxide 30 (22-30) mmol/L BUN 18 H (7-17) mg/dL Creatinine 0.87 (0.52-1.04) mg/dL Glucose 89 (74-99) mg/dL Calcium 9.4 (8.4-10.2) mg/dL Adrenal panel 11/06/19 Range/Units 06:49 Sodium 142 (137-145) mmol/L Potassium 4.2 (3.5-5.1) mmol/L Chloride 105 (98-107) mmol/L Carbon Dioxide 30 (22-30) mmol/L BUN 18 H (7-17) mg/dL Creatinine 0.87 (0.52-1.04) mg/dL Glucose 89 (74-99) mg/dL Calcium 9.4 (8.4-10.2) mg/dL Total Bilirubin 0.4 (0.2-1.3) mg/dL AST 21 (14-36) U/L ALT 21 (9-52) U/L Alkaline Phosphatase 74 (38-126) U/L Total Protein 6.2 L (6.3-8.2) g/dL Albumin 3.4 L (3.5-5.0) g/dL
[2019-11-06] MEDS: ATORVASTATIN 10 MG TAB PO SCH (19:49)
[2019-11-06] MEDS: traZODone HCL 50 MG TAB PO SCH (19:49)
[2019-11-07 06:21] LABS: Basophils % (A) 0 %; Eosinophils # (A) 0.2 k/uL (0-0.7); Eosinophils % (A) 3 %; HGB 11.7 gm/dL (11.4-16.0); Lymphocytes # (A) 2.1 k/uL (1.0-4.8); Lymphocytes % (A) 33 %; MCH 31.1 pg (25.0-35.0); MCHC 31.7 g/dL (31.0-37.0); Mean Platelet Volume 7.3; Monocytes # (A) 0.5 k/uL (0-1.0); Monocytes % (A) 8 %; Neutrophils # (A) 3.4 k/uL (1.3-7.7); Neutrophils % (A) 54 %; Platelet Count 233 k/uL (150-450); RBC 3.77 m/uL (3.80-5.40); RDW 13.3 % (11.5-15.5); WBC 6.4 k/uL (3.8-10.6)
[2019-11-07] MEDS: PANTOPRAZOLE 40 MG TABLET PO SCH (06:26)
[2019-11-07 06:34] LABS: Albumin 3.9 g/dL (3.5-5.0); Potassium 4.6 mmol/L (3.5-5.1); Total Bilirubin 0.4 mg/dL (0.2-1.3); Total Protein 6.9 g/dL (6.3-8.2)
[2019-11-07 08:04] VITALS: BP 128/64; PULSE 81; RESP 18; TEMP 97.8
[2019-11-07] MEDS: CHOLESTYRAMINE (WITH SUGAR) 4 GM PACKET PO SCH (08:05)
[2019-11-07] MEDS: HEPARIN SODIUM,PORCINE 5,000 UNIT/ML 1 ML VIAL SQ SCH (08:05)
[2019-11-07] MEDS: PARoxetine 20 MG TAB PO SCH (08:05)
[2019-11-07] MEDS: ASPIRIN 325 MG TAB PO SCH (08:05)
--- NOTE | 2019-11-07 10:53 | P.DS ---
Providers Date of admission: 11/04/19 10:44 Expected date of discharge: 11/07/19 Attending physician: Lyndsay Moody Consults: 11/03/19 23:06 Consult Physician Urgent Consulting Provider: Damion Castro Consult Reason/Comments: cp Do you want consulting provider notified?: Yes 11/04/19 10:26 Consult Physician Routine Consulting Provider: Charles Hills Consult Reason/Comments: chest xray small pleural effusion Do you want consulting provider notified?: Yes 11/05/19 12:56 Consult Physician Routine Consulting Provider: Teja López Consult Reason/Comments: abdominal discomfort with With u/s result Do you want consulting provider notified?: Yes [facility] discharge diagnosis 1. Chest pain.troponins negative 2. cardiology services have been consulted. Per cardiology chest pains atypical in nature troponins negative 3. Aspirin will be decreased to 81 milligrams. Continue Lipitor 10 mg 2. Acute metabolic encephalopathy secondary to secondary to urinary tract infection. 3. Urinary tract infection. UA showing moderate amount of leukocyte Estrace Urine culture ordered. Lactic Acid 0.9. Patient started on rocephin. urine culture negative. patient will be discharged on Ceftin for 5 more days 4. Abdominal distention and discomfort. Ultrasound of abdomen ordered. lipase 39. Ultrasound of abdomen completed showing multiple hepatic cysts. Cholelithiasis with mild wall thickening likely related to incomplete distention. Cholecystitis in the differential diagnosis poorly clinically simple hepatic cyst. per surgical services patient abdominal ultrasound does reveal evidence of cholelithiasis. patient has been cleared by surgical services no surgical intervention at this time 5. Small pleural effusion. pulmonary service is consulted. Per pulmonary clinical significance with pleural effusion at this time no further workup needed 6. Recent admission for gastroenteritis with diarrhea. C. diff testing of the time was negative. Symptoms have resolved. 7. history of hyperlipidemia 8. History of osteoarthritis to bilateral legs 9. mentally challenged 10. History of anxiety and depression. home meds resumed 11. History of insomnia. Patient maintained on trazadone Hospital course this is an 84-year-old female patient of Dr. Obando.patient presented with complaints of chest pain and altered mental status changes.patient has a developmental delay. patient's sister at bedside. patient was recently admitted on 10/22/2019 with gastroenteritis. Additional medical history includes hyperlipidemia osteoarthritis, tremors anxiety and depression. head CT completed showing no acute process. per patient's sister patient was complaining of midsternal chest discomfort. Troponin negative 2. UA showing moderate amount of leukocyte E Estrace. Urine culture ordered. Patient started on Rocephin. Patient is complaining of some abdominal distention and tenderness. Will order ultrasound of abdomen. Chest x-rag small pleural effusion. Pulmonary services will be consulted. cardiology service is consulted for chest pain. At this time patient denies any chest pain or shortness of breath.. Denies nausea, vomitting or diarrhea. Denies any urinary burning or frequency. On 11/05/2019 patient is alert and sitting comfortably in chair family at bedside. Patient working with physical therapy. At this time patient is getting treated with IV antibiotics for urinary tract infection urine culture pending. Patient denies chest pain or shortness of breath. Patient denies nausea vomiting or diarrhea. Patient denies any urinary burning or frequency On 11/06/2019 patient is resting comfortably in bed. Family at bedside. Per case management patient needs 1 more night prior to discharge to [facility] for ECF placement. Surgical services have been consulted to evaluate ultrasound result. Patient remains on Rocephin for urinary tract infection. At this time patient denies chest pain or shortness of breath. Patient denies nausea vomiting or diarrhea. Patient denies any urinary burning or frequency. on 11/07/2019 patient is alert and oriented 3. Patient to be discharged to [facility] today. Patient has been cleared for discharge from cardiology and surgical services. Urine culture negative. Patient will be DC'd on Ceftin for 3 more days for urinary tract infection. At this time patient denies chest pain or shortness breath. Patient denies nausea vomiting or diarrhea. Patient denies any urinary burning or frequency I performed an examination of the patient and discussed their management with the Nurse Practitioner. I have reviewed the Nurse Practitioner's notes and agree with the documented findings and plan of care Patient Condition at Discharge: Stable Plan - Discharge Summary Discharge Rx Participant: No New Discharge Prescriptions: No Action PARoxetine HCL [Paxil] 40 mg PO DAILY Simvastatin [Zocor] 20 mg PO HS LORazepam [Ativan] 0.5 mg PO Q8H Naproxen 375 mg PO BID PRN PRN Reason: Pain Pantoprazole [Protonix] 40 mg PO AC-BRKFST 30 Days #30 tablet.dr traZODone HCL [Desyrel] 50 mg PO HS 30 Days #30 tab Cholestyramine (with Sugar) [Questran Packet] 4 gm PO BID Melatonin 5 mg PO HS Discharge Medication List LORazepam [Ativan] 0.5 mg PO Q8H 10/22/19 [History] Naproxen 375 mg PO BID PRN 10/22/19 [History] PARoxetine HCL [Paxil] 40 mg PO DAILY 10/22/19 [History] Simvastatin [Zocor] 20 mg PO HS 10/22/19 [History] Pantoprazole [Protonix] 40 mg PO AC-BRKFST 30 Days #30 tablet. 10/27/19 [Rx] traZODone HCL [Desyrel] 50 mg PO HS 30 Days #30 tab 10/27/19 [Rx] Cholestyramine (with Sugar) [Questran Packet] 4 gm PO BID 11/03/19 [History] Melatonin 5 mg PO HS 11/03/19 [History] Follow up Appointment(s)/Referral(s): Alvarez Obando MD [Primary Care Provider] - 1-2 days Patient Instructions/Handouts: Chest Pain (ED)
== END 2019-11-07 14:03 | DRG 689 ==
LOC: EC 21:39 → 1SOBS 23:09 → OBSVTOIN 11-04 10:44 → 3SCARD 11-04 11:07
PROVIDERS: ADMIT Internal Medicine; ATTEND Internal Medicine
DX: N39.0 Urinary tract infection, site not specified (principal); G93.41 Metabolic encephalopathy; J90 Pleural effusion, not elsewhere classified; L97.519 Non-pressure chronic ulcer of other part of right foot with unspecified severity; K76.89 Other specified diseases of liver; R07.89 Other chest pain; K80.20 Calculus of gallbladder without cholecystitis without obstruction; E78.5 Hyperlipidemia, unspecified; F41.9 Anxiety disorder, unspecified; F32.9 Major depressive disorder, single episode, unspecified; M19.91 Primary osteoarthritis, unspecified site; H91.90 Unspecified hearing loss, unspecified ear; G47.00 Insomnia, unspecified; F89 Unspecified disorder of psychological development; R25.1 Tremor, unspecified; Z79.899 Other long term (current) drug therapy; Z90.710 Acquired absence of both cervix and uterus; Z88.8 Allergy status to other drugs, medicaments and biological substances
CPT/HCPCS: 36415; 70450; 71046; 76700; 80053; 80061; 81001; 83605; 83690; 83735; 83880; 84484; 85025; 85610; 85730; 87086; 93005; 94760; 96361; 96365; 96366; 99285